=== PATIENT | male | born 1985 | race Caucasian/White ===

== ENCOUNTER 2016-12-12 10:49 | Emergency (ER) | payer OTHER ==
[~2016-12-12] VITALS: Ht 172.7 cm; Wt 65.8 kg
[~2016-12-12 10:49] MED LIST: CEPH500C16 PO; HYDR-4452 PO; SULF1TAB12 PO; [UNRECOGNIZED DRUG - CODE] PO
[2016-12-12 11:01] VITALS: BP 123/89
--- NOTE | 2016-12-12 14:17 | NUR ---
PATIENT CALLED FROM LOBBY AND NO ANSWER DEXTER NAVARRO.
== END 2016-12-12 14:17 | disposition left against medical advice (07) ==
LOC: MED 10:49
DX: L02.414 Cutaneous abscess of left upper limb (principal); Z53.21 Procedure and treatment not carried out due to patient leaving prior to being seen by health care provider

== ENCOUNTER 2017-02-20 14:22 | Emergency (ER) | payer OTHER ==
[~2017-02-20] VITALS: Ht 177.8 cm; Wt 68.0 kg
[2017-02-20 14:22] VITALS: BP 92/74
--- NOTE | 2017-02-20 14:22 | NUR ---
Patient was BIBA and taken to bed 03 via gurney per EMS.
--- NOTE | 2017-02-20 14:30 | NUR ---
PT BIBA BLS FOR DRUG USE, FOUND SHOOTING UP HEROIN 20 MINS AGO IN A PARK. PT STATES "I THINK I GOT A BAD BATCH. I FEEL SICK."; DENIES DIARRHEA; SKIN IS PINK/WARM/DRY; AAOX4 WITH EVEN AND STEADY GAIT; LUNGS CLEAR BL; HR EVEN AND REGULAR; PT DENIES ANY FEVER, CP, SOB, OR COUGH AT THIS TIME; PATIENT STATES PAIN OF 0/10 AT THIS TIME; VSS; PATIENT POSITIONED FOR COMFORT; HOB ELEVATED; BEDRAILS UP X2; BED DOWN. ER MD MADE AWARE OF PT STATUS.
--- NOTE | 2017-02-20 14:53 | NUR ---
Dr. Perla evaluating patient at bedside.
[2017-02-20] MEDS ORDERED: VANCOMYCIN 1,000 MG in DEXTROSE 5% 250 ML IV ONE (14:55)
[2017-02-20] MEDS ORDERED: NACL 0.9% 1,000 ML IV ONE (14:55)
[2017-02-20 15:22] LABS: BASOPHILS # (AUTO) 0.2 K/uL (0.00-0.22); EOSINOPHILS # (AUTO) 0.2 K/uL (0-0.4); EOSINOPHILS % (AUTO) 2.1 % (0.0-4.0); HEMATOCRIT 37.1 % (36-52); HEMOGLOBIN 10.1 g/dL (12.0-18.0); LYMPHOCYTES # (AUTO) 1.8 K/uL (2.0-11.5); LYMPHOCYTES % (AUTO) 21.6 % (20.5-51.1); MEAN CORPUSCULAR HEMOGLOBIN 22 pg (27-31); MEAN CORPUSCULAR HGB CONC 27 g/dL (33-37); MEAN CORPUSCULAR VOLUME 81 fL (80-94); MONOCYTES # (AUTO) 0.5 K/uL (0.8-1.0); MONOCYTES % (AUTO) 6.4 % (1.7-9.3); NEUTROPHILS # (AUTO) 5.8 K/uL (1.8-7.7); PLATELET COUNT (AUTO) 443 K/uL (140-450); RED BLOOD CELL COUNT(AUTO) 4.56 MIL/uL (4.20-6.10); RED CELL DISTRIBUTION WIDTH 14.1 % (11.6-13.7); WHITE BLOOD COUNT (AUTO) 8.5 K/uL (4.8-10.8)
[2017-02-20 15:35] LABS: ANION GAP 13.8 (8-16); CALCIUM 8.2 mg/dL (8.5-10.1); CHLORIDE 101 mmol/L (98-107); CREATININE 0.6 mg/dL (0.6-1.3); GFR ARICAN-AMERICAN 200 mL/min (>90); GFR NON ARICAN-AMERICAN 165 mL/min (>90); GLUCOSE 96 mg/dL (74-106); POTASSIUM 3.8 mmol/L (3.5-5.1); SODIUM SERUM 138 mmol/L (136-145); UREA NITROGEN, BLOOD 5 mg/dL (7-18)
[2017-02-20 15:42] LABS: ACETAMINOPHEN < 0.5 ug/ml (10-30); ALANINE AMINOTRANSFERASE 130 U/L (12-78); ALBUMIN 2.8 g/dL (3.4-5.0); ALCOHOL, BLOOD 80 mg/dL (<3); ALKALINE PHOSPHATASE 139 U/L (46-116); ASPARTATE AMINOTRANSFERASE 87 U/L (15-37); SALICYLATE < 2.8 mg/dL (2.8-20.0); TOTAL BILIRUBIN 0.5 mg/dL (0.0-1.0); TOTAL PROTEIN, SERUM 8.3 g/dL (6.4-8.2)
[2017-02-20] MEDS ORDERED: VANCOMYCIN 1,000 MG VIAL ONE (16:24)
[2017-02-20 18:25] VITALS: BP 101/77
--- NOTE | 2017-02-20 18:25 | NUR ---
Patient discharged with v/s stable. Written and verbal after care instructions given and explained. Patient alert, oriented and verbalized understanding of instructions. Ambulatory with steady gait. All questions addressed prior to discharge. ID band removed. Patient advised to follow up with PMD. Rx of BACTRIM, NORCO given. Patient educated on indication of medication including possible reaction and side effects. Opportunity to ask questions provided and answered.
== END 2017-02-20 18:25 | disposition home or self-care (01) ==
LOC: MED 14:22
DX: F11.10 Opioid abuse, uncomplicated (principal); L03.116 Cellulitis of left lower limb; D64.89 Other specified anemias; Z91.040 Latex allergy status
CPT/HCPCS: 36415; 71010; 80053; 85025; 87040; 93005; 96361; 96365; 99285; G0480; G0482; J3370; J7030; J7060; Q0092

== ENCOUNTER 2017-03-06 08:53 | Emergency (ER) | payer OTHER ==
[~2017-03-06] VITALS: Ht 177.8 cm; Wt 68.9 kg
[2017-03-06 09:19] VITALS: BP 138/78
--- NOTE | 2017-03-06 09:21 | NUR ---
Patient ambulated to bed 07.
--- NOTE | 2017-03-06 09:39 | NUR ---
32/M presents for medication refill. Pt states he lost his prescription for antibiotics and [place]. No complaints at this time. VSS.
--- NOTE | 2017-03-06 09:50 | NUR ---
Dr. Dixon evaluating patient at bedside.
[2017-03-06] MEDS ORDERED: KETOROLAC 60 MG/2 ML VIAL IM ONE (10:00)
[2017-03-06] MEDS ORDERED: oxyCODONE/APAP 5/325 MG 1 TAB TAB PO ONE (10:00)
[2017-03-06] MEDS ORDERED: cefTRIAXone 1,000 MG in LIDOCAINE 1% ED 2.1 ML IM ONE (10:00)
--- NOTE | 2017-03-06 10:02 | NUR ---
Pt refusing to have x-ray performed. Pt states "It's not broken. I don't need it. My mom is waiting in the car and I need to leave as soon as possible." Dr. Dixon made aware.
--- NOTE | 2017-03-06 10:10 | NUR ---
Pt left facility and states "I'm going outside to tell my mom I'm going to be awhile." Pt found wandering outside. Smoking. Dr. Dixon made aware.
--- NOTE | 2017-03-06 10:21 | NUR ---
Pt returned and attempted to provide a UA. Pt states "I can't right now can I have some more water." Pt provided with water.
--- NOTE | 2017-03-06 10:30 | NUR ---
Pt requesting to speak with Dr. Dixon. Pt states "I can't wait for results. I need to leave as soon as possible. I just need a prescription and I can leave." Dr. Dixon made aware.
--- NOTE | 2017-03-06 10:33 | NUR ---
Dr. Dixon at bedside.
[2017-03-06 10:41] VITALS: BP 138/78
--- NOTE | 2017-03-06 10:42 | NUR ---
Patient discharged with v/s stable. Written and verbal after care instructions given and explained. Patient alert, oriented and verbalized understanding of instructions. Ambulatory with steady gait. All questions addressed prior to discharge. ID band removed. Patient advised to follow up with PMD. Rx of KEFLEX, BACTRIM, AND MOTRIN given. Patient educated on indication of medication including possible reaction and side effects. Opportunity to ask questions provided and answered.
== END 2017-03-06 10:42 | disposition home or self-care (01) ==
LOC: MED 08:53
CPT/HCPCS: 96372; 99284; J0696; J1885; J2001

== ENCOUNTER 2017-05-07 17:13 | Inpatient (IN) | payer OTHER ==
[~2017-05-07] VITALS: Ht 177.8 cm; Wt 66.2 kg
--- NOTE | 2017-05-07 17:13 | NUR ---
Patient was BIBA at this time.
[2017-05-07 17:16] VITALS: BP 133/84
[2017-05-07] MEDS ORDERED: NACL 0.9% 1,000 ML IV ONE (17:30)
[2017-05-07] MEDS ORDERED: HYDROmorphone 1 MG/ML AMP IVP ONE (17:30)
--- NOTE | 2017-05-07 18:04 | NUR ---
Patient taken to bed 07 via wheelchair per tech.
--- NOTE | 2017-05-07 18:15 | NUR ---
32 M C/O ABSCESS TO LEFT UPPER ARM X1 WEEK; AAOX4; LUNGS CLEAR BL; RR ARE EVEN AND UNLABORED; PATIENT STATES PAIN OF "PRESSURE" CONSTANT 10/10 TO L UPPER ARM AT THIS TIME; VSS; PATIENT POSITIONED FOR COMFORT; HOB ELEVATED; BED DOWN. ER MD MADE AWARE OF PT STATUS.
[2017-05-07] MEDS ORDERED: HYDROcodone/APAP 10/325 MG 1 TAB TAB PO ONE (18:30)
[2017-05-07] MEDS ORDERED: LORazepam 1 MG TAB PO ONE (18:30)
[2017-05-07] MEDS ORDERED: KETOROLAC 30 MG/ML VIAL IM ONE (18:30)
--- NOTE | 2017-05-07 18:32 | NUR ---
PT UPSET AND REFUSING LAB DRAW OR IV START; PT STATED "I WILL HIT YOU IF YOU TRY TO TOUCH ME WITH A NEEDLE"; SECURITY CALLED; ED MD HOFFMAN AND PARK ATTENDANT NOTIFIED AND AWARE
[2017-05-07] MEDS ORDERED: KETOROLAC 30 MG/ML VIAL ONE (18:36)
--- NOTE | 2017-05-07 19:15 | NUR ---
GOT REPORT FROM CARI JACK. PT. RESTING IN BED, NO S/SX OF DISTRESS AT THIS TIME.
[2017-05-07 19:30] LABS: BASOPHILS # (AUTO) 0.4 K/uL (0.00-0.22); EOSINOPHILS # (AUTO) 0.3 K/uL (0-0.4); HEMATOCRIT 42.9 % (36-52); HEMOGLOBIN 13.4 g/dL (12.0-18.0); LYMPHOCYTES # (AUTO) 0.9 K/uL (2.0-11.5); MEAN CORPUSCULAR HEMOGLOBIN 26 pg (27-31); MEAN CORPUSCULAR HGB CONC 31 g/dL (33-37); MEAN CORPUSCULAR VOLUME 84 fL (80-94); MONOCYTES # (AUTO) 0.2 K/uL (0.8-1.0); NEUTROPHILS # (AUTO) 11.9 K/uL (1.8-7.7); PLATELET COUNT (AUTO) 405 K/uL (140-450); RED CELL DISTRIBUTION WIDTH 13.1 % (11.6-13.7); WHITE BLOOD COUNT (AUTO) 13.7 K/uL (4.8-10.8)
[2017-05-07 19:38] LABS: ANION GAP 14.3 (8-16); CARBON DIOXIDE 27.1 mmol/L (21-32); CREATININE 0.8 mg/dL (0.7-1.3); POTASSIUM 3.4 mmol/L (3.5-5.1)
[2017-05-07 19:45] LABS: PROTHROMBIN TIME 10.4 secs (10.8-13.4)
[2017-05-07 19:52] LABS: ALBUMIN 3.5 g/dL (3.4-5.0); TOTAL BILIRUBIN 0.7 mg/dL (0.0-1.0)
[2017-05-07] MEDS ORDERED: PIPERACILLIN/TAZOBACTAM 3.375 GM in DEXTROSE 5% 50 ML IV ONE (19:55)
[2017-05-07] MEDS: NACL 0.9% 1,000 ML IV SCH ×2 (20:08→22:18)
[2017-05-07] MEDS ORDERED: ONDANSETRON 4 MG/2 ML VIAL IVP PRN (20:10)
[2017-05-07] MEDS ORDERED: MORPHINE SULFATE 4 MG/ML SYR IVP PRN (20:10)
[2017-05-07] MEDS ORDERED: ACETAMINOPHEN 325 MG TAB PO PRN (20:10)
[2017-05-07] MEDS ORDERED: VANCOMYCIN PER PHARMACY MC PRN (20:10)
[2017-05-07] MEDS ORDERED: PIPERACILLIN/TAZOBACTAM 3.375 GM VIAL IV ONE ×2 (20:10→21:45)
--- NOTE | 2017-05-07 20:17 | NUR ---
PT. UNABLE TO PROVIDE URINE, DR. PERAZA MADE AWARE
--- NOTE | 2017-05-07 20:45 | NUR ---
Patient will be admitted to care of DR. WILLAMS. Admited to TELEMETRY. Will go to [id number]. Belongings list completed. Report to CARI AMOS.
[2017-05-07 20:55] VITALS: BP 101/59
--- NOTE | 2017-05-07 20:55 | NUR ---
Admitted from ER TO TELEMETRY UNIT , with chief complaint of ABSCESS, LEFT UPPER ARM,32 y/o ,Male, Passive, VERY DROWSY, STINKS, SEEMS UNABLE TO HAVE BATH. AWAKE, ALERT, ANSWERS QUESTIONS BUT ABRUPTLY BACK TO SLEEP AGAIN. RESPIRATION EVEN AND UNLABORED. IV SALINE LOCK AT THE RIGHT AC G24, PATENT AND INTACT. WITH REDNESS AND SWELLING NOTED ON THE LEFT ARM, TENDER TO TOUCH. HEAD TO TOE ASSESSMENT DONE WITH NURSE LISE, SKIN INTACT. SR/SA ON TELE MONITORING, VS STABLE. oriented to call light, bed, phone,television, bathroom, smoking policy, visiting hours, procedures, ID bracelet on. Belongings list checked.
[2017-05-07] MEDS ORDERED: VANCOMYCIN 1,000 MG VIAL ONE (21:47)
--- NOTE | 2017-05-07 22:00 | NUR ---
SLEEPING COMFORTABLY IN BED.
--- NOTE | 2017-05-07 22:06 | NUR ---
Patient's Plan of Care was discussed and reviewed with SVP MARKETING: ALMITA AMOS
[2017-05-07 22:08] LABS: APPEARANCE,URINE CLEAR (CLEAR); BILIRUBIN,URINE NEGATIVE (NEGATIVE); BLOOD, URINE NEGATIVE (NEGATIVE); COLOR,URINE YELLOW (YELLOW); LEUKOCYTE ESTERASE ,URINE NEGATIVE (NEGATIVE); NITRITE, URINE NEGATIVE (NEGATIVE); UGLUCOSE NEGATIVE (NEGATIVE)
[2017-05-07] MEDS: VANCOMYCIN 1GM/DEXT 5% PREMIX 200 ML IV SCH (22:10)
--- NOTE | 2017-05-07 22:10 | NUR ---
VANCOMYCIN 1 GM IVPB GIVEN BY CHARGE NURSE KOJO.
[2017-05-07 22:18] LABS: BARBITURATE, URINE NEG. ng/ml (NEG <=200); BENZODIAZEPINE, URINE NEG. ng/mL (NEG <=200); CANNABINOID, URINE NEG. ng/mL (NEG <=50); COCAINE, URINE NEG. ng/mL (NEG <=300); OPIATE, URINE POS. ng/mL (NEG <=2000); PHENCYCLIDINE SCREEN,URINE NEG. ng/mL (NEG <=25)
--- NOTE | 2017-05-08 | NUR ---
REFUSED VITAL SIGN TO BE TAKEN. STILL VERY SLEEPY.
[2017-05-08 03:18] VITALS: BP 120/63
--- NOTE | 2017-05-08 04:58 | NUR ---
ZOSYN 3.375 MG. IVPB GIVEN BY CARI CHANG.
[2017-05-08] MEDS: VANCOMYCIN 1GM/DEXT 5% PREMIX 200 ML IV SCH ×3 (05:00→21:00)
[2017-05-08] MEDS ORDERED: PIPERACILLIN/TAZOBACTAM 3.375 GM in DEXTROSE 5% 50 ML IV SCH (05:00)
--- NOTE | 2017-05-08 05:00 | NUR ---
INFORMED DR. DUMAS, PATIENT COMPLAINING THAT MORPHINE 4 MG. DOES NOT WORK ON HIM, ALSO ASKING FOR METHADONE. INCREASED MORPHINE TO 6 MG, ORDERED METHADONE, SAME DOSAGE IN THE MED RECONCILIATION.
[2017-05-08] MEDS ORDERED: VANCOMYCIN 1,000 MG VIAL ONE (05:24)
--- NOTE | 2017-05-08 05:30 | NUR ---
ENTERPRISE ARCHITECT MANAGER JOHN INFORMED PATIENT HAD EPISODES OF BRADYCARDIA, HR - 41 AND CHANGED IN RHYTHM. CHECKED PATIENT, BP - 132/78, HR - 63, ASYMPTOMATIC. WILL ENDORSE TO AM NURSE FOR MD TO BE INFORMED.
--- NOTE | 2017-05-08 05:32 | NUR ---
VANCOMYCIN 1000MG STARTED, PATIENT TOLERATED WELL.
[2017-05-08] MEDS: NACL 0.9% 1,000 ML IV SCH ×2 (06:08→16:20)
[2017-05-08] MEDS ORDERED: MORPHINE SULFATE 5 MG/ML VIAL IVP PRN ×2 (06:15→06:35)
--- NOTE | 2017-05-08 06:55 | NUR ---
RESTING IN BED, RESPIRATION EVEN AND UNLABORED. CONDITION REMAIN STABLE. WILL ENDORSE TO AM NURSE FOR CONTINUITY OF CARE.
[2017-05-08] MEDS ORDERED: MORPHINE SULFATE 10 MG/ML SYR IVP PRN (07:20)
--- NOTE | 2017-05-08 07:30 | NUR ---
RECEIVED BEDSIDE REPORT FROM DETECTIVE CAPTAIN NURSE. PT AWAKE AND ALERT, NO SIGNS OF ACUTE DISTRESS. BOWEL SOUNDS ACTIVE IN ALL 4 QUADRANTS, BOWEL AND BLADDER CONTINENCE. AMBULATORY WITH ASSIST. REDNESS AND SWELLING ON LEFT UPPER EXTREMITY AND SCAR ON LEFT BUTTOCKS. IV PATENT AND ASYMPTOMATIC. BED IN LOW POSITION WITH BILATERAL HALF SIDE RAILS UP, CALL LIGHT WITHIN REACH. WILL CONTINUE TO MONITOR.
[2017-05-08 08:00] VITALS: BP 128/75
[2017-05-08] MEDS: MORPHINE SULFATE 10 MG/ML SYR IVP PRN ×4 (08:07→22:06)
[2017-05-08] MEDS ORDERED: METHADONE HCL PO SCH (09:00)
--- NOTE | 2017-05-08 09:20 | NUR ---
SPOKE WITH DR SKINNER REGARDING PATIENT HEART RATE FLUCTUATIONS FROM 41 TO 108, SINUS GEORGE, SINUS ARRHYTHMIA, TO SINUS TACH. PER DR SKINNER, ORDER AN EKG AND HE WILL BE IN TO SEE PATIENT TODAY. NOTED, WILL CARRY OUT.
--- NOTE | 2017-05-08 09:30 | NUR ---
PER PATIENT HE IS NOT CURRENTLY GOING TO A METHADONE CLINIC AT THIS TIME, HE IS USING HEROIN.
--- NOTE | 2017-05-08 10:20 | NUR ---
CM NOTE INITIAL REVIEW FAXED TO [facility] [phone] PH# ANALY [phone] FEBRUARY [phone]
--- NOTE | 2017-05-08 11:23 | NUR ---
PATIENT HAS BEEN SCREENED AND CATEGORIZED MODERATE NUTRITION RISK. PATIENT WILL BE SEEN WITHIN 3-5 DAYS OF ADMISSION. 05/10/17-05/12/[address]
--- NOTE | 2017-05-08 11:30 | NUR ---
PT SLEEPING, NO SIGNS OF ACUTE DISTRESS. BED IN LOW POSITION, BED ALARM ON, BILATERAL HALF SIDE RAILS UP, CALL LIGHT WITHIN REACH. WILL CONTINUE TO MONITOR.
[2017-05-08 12:00] VITALS: BP 126/75
[2017-05-08] MEDS: PIPER/TAZO 3.375GM/D5W PREMIX 50 ML IV SCH ×2 (12:21→21:15)
--- NOTE | 2017-05-08 13:00 | NUR ---
DR SKINNER AT PATIENT BEDSIDE.
--- NOTE | 2017-05-08 14:30 | NUR ---
PT SLEEPING, NO SIGNS OF ACUTE DISTRESS. BED IN LOW POSITION WITH BILATERAL HALF SIDE RAILS UP, BED ALARM ON, CALL LIGHT WITHIN REACH. WILL CONTINUE TO MONITOR.
[2017-05-08] MEDS ORDERED: METHADONE 10 MG TAB PO SCH (15:31)
[2017-05-08 16:00] VITALS: BP 122/78
[2017-05-08] MEDS ORDERED: PROPOFOL 200 MG/20 ML VIAL IV ONE (17:30)
[2017-05-08] MEDS ORDERED: MIDAZOLAM 2 MG/2 ML VIAL ONE (17:39)
[2017-05-08] MEDS ORDERED: fentaNYL 0.05 MG/ML VIAL ONE (17:39)
[2017-05-08] MEDS ORDERED: MORPHINE SULFATE 4 MG/ML SYR ONE (17:39)
[2017-05-08] MEDS: BUPIVACAINE-MPF 0.25% 30 ML VIAL INJ ONE ×2 (17:52→18:35)
--- NOTE | 2017-05-08 18:00 | NUR ---
PT TAKEN OFF UNIT FOR INCISION AND DRAINAGE WITH DR PEPE.
[2017-05-08] MEDS ORDERED: PIPERACILLIN/TAZOBACTAM 3.375 GM VIAL IV ONE (18:08)
[2017-05-08] MEDS ORDERED: MIDAZOLAM 2 MG/2 ML VIAL IV ONE (18:35)
[2017-05-08] MEDS ORDERED: METOCLOPRAMIDE 10 MG/2 ML INJ VIAL IVP PRN (18:35)
[2017-05-08] MEDS ORDERED: MORPHINE SULFATE 4 MG/ML SYR IVP PRN ×2 (18:35)
[2017-05-08] MEDS ORDERED: MORPHINE SULFATE 2 MG/ML SYR IVP PRN (18:35)
--- NOTE | 2017-05-08 19:20 | NUR ---
PATIENT OFF UNIT IN OR. ENDORSED TO SPEECH LANGUAGE SPECIALIST NURSE FOR CONTINUITY OF CARE.
--- NOTE | 2017-05-08 19:45 | NUR ---
RECEIVED HANDOFF REPORT FROM AM RN. PATIENT BROUGHT BACK TO UNIT FROM OR. IV ON RIGHT FOREARM NO LONGER PATENT. OR NURSE STARTED 20G IV TO LEFT FOOT. PATIENT A&OX4. NO SIGNS AND SYMPTOMS OF DISTRESS. CALL LIGHT WITHIN REACH. WILL CONTINUE TO MONITOR.
[2017-05-08 20:00] VITALS: BP 123/75
--- NOTE | 2017-05-08 21:28 | NUR ---
PATIENT SLEEPING IN BED. PM MEDS GIVEN. CALL LIGHT WITHIN REACH. WILL CONTINUE TO MONITOR.
[2017-05-09] VITALS: BP 104/58
--- NOTE | 2017-05-09 00:41 | NUR ---
PATIENT SLEEPING. NO SIGNS OR SYMPTOMS OF ACUTE DISTRESS. WILL CONTINUE TO MONITOR.
[2017-05-09] MEDS: NACL 0.9% 1,000 ML IV SCH ×3 (01:43→22:08)
--- NOTE | 2017-05-09 03:00 | NUR ---
PATIENT SLEEPING. NO SIGNS AND SYMPTOMS OF ACUTE DISTRESS NOTED. CALL LIGHT WITHIN REACH. WILL CONTINUE TO MONITOR.
[2017-05-09 04:00] VITALS: BP 103/62
[2017-05-09 04:13] LABS: BASOPHILS # (AUTO) 0.2 K/uL (0.00-0.22); BASOPHILS % (AUTO) 1.9 % (0.0-2.0); EOSINOPHILS # (AUTO) 0.2 K/uL (0-0.4); EOSINOPHILS % (AUTO) 2.2 % (0.0-4.0); HEMATOCRIT 38.8 % (36-52); HEMOGLOBIN 12.6 g/dL (12.0-18.0); LYMPHOCYTES # (AUTO) 1.7 K/uL (2.0-11.5); LYMPHOCYTES % (AUTO) 18.7 % (20.5-51.1); MEAN CORPUSCULAR HEMOGLOBIN 27 pg (27-31); MEAN CORPUSCULAR HGB CONC 32 g/dL (33-37); MEAN CORPUSCULAR VOLUME 84 fL (80-94); MONOCYTES # (AUTO) 1.1 K/uL (0.8-1.0); MONOCYTES % (AUTO) 12.2 % (1.7-9.3); NEUTROPHILS # (AUTO) 5.8 K/uL (1.8-7.7); PLATELET COUNT (AUTO) 373 K/uL (140-450); RED CELL DISTRIBUTION WIDTH 12.8 % (11.6-13.7)
[2017-05-09] MEDS: MORPHINE SULFATE 10 MG/ML SYR IVP PRN ×4 (04:24→21:52)
--- NOTE | 2017-05-09 04:24 | NUR ---
PATIENT REPORTS 10/10 PAIN. MEDICATED ORDERED. NO SIGNS AND SYMPTOMS OF ACUTE DISTRESS. CALL LIGHT WITHIN REACH. WILL CONTINUE TO MONITOR.
[2017-05-09] MEDS: PIPER/TAZO 3.375GM/D5W PREMIX 50 ML IV SCH ×3 (04:25→20:51)
[2017-05-09 04:42] LABS: ALBUMIN 2.4 g/dL (3.4-5.0); ANION GAP 8.6 (8-16); CARBON DIOXIDE 30.3 mmol/L (21-32); CREATININE 0.6 mg/dL (0.7-1.3); POTASSIUM 3.9 mmol/L (3.5-5.1); TOTAL BILIRUBIN 0.3 mg/dL (0.0-1.0)
--- NOTE | 2017-05-09 05:10 | NUR ---
CALLED PHARMACY REGARDING VANCO TROUGH. WAITING FOR CALL BACK.
--- NOTE | 2017-05-09 05:13 | NUR ---
TRACY RIVAS FROM OFF SITE PHARMACY, JOHANN BUCIO TO GIVE.
[2017-05-09] MEDS: VANCOMYCIN 1GM/DEXT 5% PREMIX 200 ML IV SCH ×3 (05:19→21:58)
--- NOTE | 2017-05-09 07:15 | NUR ---
ENDORSED PLAN OF CARE TO AM NURSE. PATIENT REMAINS STABLE.
--- NOTE | 2017-05-09 07:25 | NUR ---
RECEIVED REPORT FROM SOLAR ELECTRIC INSTALLER NURSE, PT IS SLEEPING IN BED BUT EASILY AWAKEN, PT IS A/OX4, AMBULATORY, IV IS ON THE LT. FOOT, PATENT, INTACT, PT IS S/P I & D OF LEFT UPPER ARM 05/08/17, NO S/S OF RESPIRATORY DISTRESS OR DISCOMFORT NOTED, SAFETY/FALL PRECAUTIONS ARE IN PLACE, DISCUSSED PLAN OF CARE WITH PT, PT VERBALIZED UNDERSTANDING, CALL LIGHT IS WITHIN REACH, WILL CONTINUE TO MONITOR.
[2017-05-09 08:00] VITALS: BP 114/70
[2017-05-09] MEDS: METHADONE 10 MG TAB PO SCH (08:12)
--- NOTE | 2017-05-09 09:00 | NUR ---
PT REFUSED TO HAVE GOWN CHANGED AND BED BATH DONE.
--- NOTE | 2017-05-09 10:10 | NUR ---
CM NOTE CONCURRENT REVIEW FAXED TO [facility] [phone] PH# ANALY [phone] FEBRUARY [phone]
--- NOTE | 2017-05-09 11:00 | NUR ---
PT IS SLEEPING IN BED AT THIS TIME, CALL LIGHT WITHIN REACH.
--- NOTE | 2017-05-09 13:00 | NUR ---
PATIENT IS RESTING IN BED AT THIS TIME, PT REQUESTED SNACKS, ALL NEEDS MET AT THIS TIME, CALL LIGHT WITHIN REACH.
--- NOTE | 2017-05-09 13:25 | NUR ---
PATIENT COMPLAINING OF SEVERE ARM PAIN, WILL MEDICATE WITH PRN PAIN MEDICATIONS AT THIS TIME.
--- NOTE | 2017-05-09 14:12 | NUR ---
PER PHARMACIST, JODIE BUCIO TO GIVE THE VANCOMYCIN, VANCOMYCIN TROUGH IS 15.7.
--- NOTE | 2017-05-09 15:10 | NUR ---
PT IS SLEEPING IN BED AT THIS TIME, CALL LIGHT IS WITHIN REACH.
--- NOTE | 2017-05-09 15:56 | NUR ---
SS NOTE: PER [facility] MISAEL BECKFORD ([phone]), IF [facility] IS ABLE TO ACCEPT PT, THE AUTH IS [id number]. SHE ALSO STATED THAT TRANSPORT AUTH IS [id number].
[2017-05-09 16:00] VITALS: BP 120/61
--- NOTE | 2017-05-09 17:40 | NUR ---
PT IS SITTING IN BED EATING DINNER, PT STATED HIS PAIN WAS RETURNING 10/10, SHARP PAIN, WILL MEDICATE WITH PRN PAIN MEDICATION.
--- NOTE | 2017-05-09 19:05 | NUR ---
ENDORSED PT TO SHAPER AND PRESSER NURSE FOR CONTINUITY OF CARE, PT STABLE AT THIS TIME.
--- NOTE | 2017-05-09 19:40 | NUR ---
RECEIVED HANDOFF REPORT FROM AM RN. PATIENT A&OX4. SAFETY MEASURES ENSURED. CALL LIGHT WITHIN REACH. IV SITE PATENT AND INTACT. NO SIGNS OR SYMPTOMS OF ACUTE DISTRESS. PATIENT DENIES PAIN. WILL CONTINUE TO MONITOR.
--- NOTE | 2017-05-09 21:52 | NUR ---
PATIENT REPORTS 10/10 PAIN. MEDICATED ORDERED. NO SIGNS OR SYMPTOMS OF ACUTE DISTRESS. CALL LIGHT WITHIN REACH. WILL CONTINUE TO MONITOR.
[2017-05-10] VITALS: BP 113/65
--- NOTE | 2017-05-10 00:52 | NUR ---
PATIENT SLEEPING IN BED. NO SIGNS OR SYMPTOMS OF ACUTE DISTRESS. CALL LIGHT WITHIN REACH. WILL CONTINUE TO MONITOR.
--- NOTE | 2017-05-10 03:00 | NUR ---
PATIENT SLEEPING. NO SIGNS OR SYMPTOMS OF ACUTE DISTRESS. CALL LIGHT WITHIN REACH. WILL CONTINUE TO MONITOR.
[2017-05-10] MEDS: MORPHINE SULFATE 10 MG/ML SYR IVP PRN ×2 (03:06→08:03)
[2017-05-10] MEDS: NACL 0.9% 1,000 ML IV SCH (03:13)
[2017-05-10] MEDS: PIPER/TAZO 3.375GM/D5W PREMIX 50 ML IV SCH ×2 (05:04→12:35)
--- NOTE | 2017-05-10 05:40 | NUR ---
PATIENT SLEEPING. NO SIGNS OR SYMPTOMS OF ACUTE DISTRESS. CALL LIGHT WITHIN REACH. WILL CONTINUE TO MONITOR.
[2017-05-10] MEDS: VANCOMYCIN 1GM/DEXT 5% PREMIX 200 ML IV SCH (05:52)
--- NOTE | 2017-05-10 07:17 | NUR ---
GAVE HANDOFF REPORT TO AM RN. PATIENT REMAINS STABLE
--- NOTE | 2017-05-10 07:23 | NUR ---
RECEIVED REPORT FROM MANAGER LEADERSHIP DEVELOPMENT NURSE, PT IS SLEEPING IN BED BUT EASILY AWAKEN, PT IS A/OX4, AMBULATORY, IV IS ON THE LT. FOOT, PATENT, INTACT, PT IS S/P I & D OF LEFT UPPER ARM 05/08/17, PT HAS DRESSING WITH MINIMAL DRAINAGE NOTED ON THE LEFT UPPER ARM, NO S/S OF RESPIRATORY DISTRESS OR DISCOMFORT NOTED, SAFETY/FALL PRECAUTIONS ARE IN PLACE, DISCUSSED PLAN OF CARE WITH PT, PT VERBALIZED UNDERSTANDING, CALL LIGHT IS WITHIN REACH, WILL CONTINUE TO MONITOR.
[2017-05-10 08:00] VITALS: BP 133/66
[2017-05-10] MEDS: METHADONE 10 MG TAB PO SCH (08:03)
--- NOTE | 2017-05-10 08:25 | NUR ---
PAGED DR. PEPE TO LET HIM KNOW THE PATIENT WAS REFUSING TO HAVE THE PACKING CHANGED DURING WOUND CARE.
--- NOTE | 2017-05-10 08:37 | NUR ---
CM NOTE CONCURRENT REVIEW FAXED TO [facility] [phone] PH# ANALY [phone] FEBRUARY [phone]
--- NOTE | 2017-05-10 08:55 | NUR ---
SPOKE TO DR. PEPE OVER THE PHONE, I LET HIM KNOW THE PATIENT WAS REFUSING TO HAVE THE PACKING REMOVED DURING WOUND CARE. DR. PEPE DID NOT GIVE ANY ORDERS, DR. PEPE SAID "OK."
--- NOTE | 2017-05-10 09:10 | NUR ---
CM NOTE SENT THE FOLLOWING SNF INQUIRIES FOR POSSIBLE SNF PLACEMENT: [facility] - [facility], NOT ABLE TO TAKE PATIENT BECAUSE OF HIS ACTIVE DRUG USE [facility] - [facility], NO MALE BEDS AVAILABLE [facility], NO BED AVAILABLE [facility] - [facility] [place], NOT ABLE TO TAKE PATIENT BECAUSE OF ACTIVE DRUG USE AND HOMELESS [facility] - [facility] [place], NO BED AVAILABLE [facility] - [facility], THEY CAN TAKE PATIENT IF NO ISOLATION Addendum: 05/10/17 at 1012 by Meg Feng BRIANNA PH# [phone], (C) [phone] [facility] CASE MANAGEMENT COVERAGE ON 05/10/17 DIP PAINTER JEFF PH# [phone]; FOR DATES 05/11/17-05/13/17: DIP PAINTER СВЕТЛАНА PH# [phone]
--- NOTE | 2017-05-10 10:50 | NUR ---
PATIENT AGREED TO HAVE PACKING REMOVED FROM WOUND, WOUND CARE DONE BY (PINEDA) WOUND CARE NURSE, PHOTOS OF THE WOUND WERE TAKEN, PT TOLERATED WELL, WILL CONTINUE TO MONITOR.
[2017-05-10] MEDS ORDERED: GAUZE TP PRN (11:35)
--- NOTE | 2017-05-10 11:41 | NUR ---
WOUND CARE EVALUATION NOTE REASON FOR EVALUATION: S/P I&D ABSCESS LEFT UPPER ARM COMPLETE SKIN ASSESSMENT DONE ON THIS 32 Y/O MALE ADMITTED TO [facility], WITH INITIAL DIAGNOSIS OF GROWING ABSCESS LEFT UPPER ARM. NO SIGNIFICANT PAST MEDICAL . ALL ABOVE INFORMATION WAS OBTAINED FROM THE PT. AND ADMISSION H&P. LABS 05/09/17 ARE WBC 4.6, H/H 12.6/38.8, GLUCOSE 76, ALBUMIN 2.4, PT/INR 05/07/17 WERE 10.4/1.0 AND PTT 29.8. BLOOD CULTURE NO GROWTH AFTER 48H. MEDICATIONS INCLUDE METHODONE, PIPERACILLIN, VANCOMYCIN AND MORPHINE SULFATE. PATIENT IS AAOX4, SKIN WARN AND DRY, WNL. SKIN TURGOR TIGHT. BLE HAIR GROWTH, BILATERAL PEDAL PULSES PRESENT AND STRONG. CAPILLARY REFILLED <3 SEC. PLAN OF CARE AND WOUND CARE EDUCATION PROVIDE TO PT. AND PT VERBALIZES UNDERSTANDING. POC DISCUSSED WITH PRIMARY RN. INTEGUMENTARY: LEFT UPPER ARM - S/P I&D SITE CLEAN, MODERATE AMOUNT OF SANGUINEOUS DRAINAGE, NO ODOR. [id number] WITH DEEPEST UNDERMINING AT 3 O'CLOCK 3.5CCM RECOMMENDATIONS: -CLEANSE WOUND WITH NS. PAT DRY, PACK WITH IODOFORM COVER WITH DRY DRESSING AND SECURE WITH TAPE BID AND PRN IF SOILING -KEEP AREA DRY AND CLEAN AT ALL CANDE -ASSESS AND MONITOR WOUND SITE DURING WOUND CARE AND NOTIFY PHYSICIAN FOR ANY S/S INFECTION OR CHANGE OF CONDITION RECOMMENDATIONS DISCUSSED WITH PRIMARY RN. WILL FOLLOW UP PATIENT Q 7-10 DAYS AND PRN. PLEASE CONTACT WOUND CARE NURSE FOR ANY CONCERNS, QUESTIONS AND CHANGES IN SKIN CONDITION. Addendum: 05/10/17 at 1318 by Jason Slater RN (Grace) 05/10/[address] CONSULT.
--- NOTE | 2017-05-10 12:06 | NUR ---
PAGED DR. SKINNER TO LET HIM KNOW THE PATIENT HAS BEEN ASKING FOR CHOCOLATE BROWNIES EVERY HOUR TODAY AND WAS BEGINNING TO SCREAM AND GET AGGRESSIVE.
--- NOTE | 2017-05-10 12:13 | NUR ---
SECURITY IN PATIENT'S ROOM SPEAKING WITH PT.
[2017-05-10] MEDS: MORPHINE SULFATE 2 MG/ML SYR IVP PRN ×3 (12:36→21:10)
--- NOTE | 2017-05-10 14:00 | NUR ---
DR. SKINNER IN PATIENT'S ROOM SPEAKING WITH PT.
--- NOTE | 2017-05-10 15:10 | NUR ---
PATIENT IS SLEEPING IN BED AT THIS TIME, NO S/S OF RESPIRATORY DISTRESS OR DISCOMFORT NOTED, CALL LIGHT WITHIN REACH.
[2017-05-10 16:00] VITALS: BP 106/57
--- NOTE | 2017-05-10 17:04 | NUR ---
PT IS SLEEPING IN BED AT THIS TIME, CALL LIGHT IS WITHIN REACH.
--- NOTE | 2017-05-10 19:15 | NUR ---
ENDORSED PT TO RUBBER MOLD MAKER NURSE FOR CONTINUITY OF CARE, PT STABLE AT THIS TIME.
--- NOTE | 2017-05-10 19:45 | NUR ---
RECEIVED HANDOFF REPORT FROM AM RN. PATIENT SLEEPING UPON ENTRY. A&OX4. IV SITE PATENT AND INTACT. DRESSING DRY AND INTACT. SAFETY MEASURES ENSURED. CALL LIGHT WITHIN REACH. WILL CONTINUE TO MONITOR.
[2017-05-10] MEDS: GAUZE TP SCH (21:00)
[2017-05-10] MEDS: CLINDAMYCIN 600 MG in DEXTROSE 5% 50 ML IV SCH (21:15)
--- NOTE | 2017-05-10 23:00 | NUR ---
PATIENT SLEEPING. NO SIGNS AND SYMPTOMS OF ACUTE DISTRESS. CALL LIGHT WITHIN REACH. WILL CONTINUE TO MONITOR.
[2017-05-11] VITALS: BP 112/53
--- NOTE | 2017-05-11 01:15 | NUR ---
PATIENT SLEEPING. NO SIGNS AND SYMPTOMS OF ACUTE DISTRESS. CALL LIGHT WITHIN REACH. WILL CONTINUE TO MONITOR.
--- NOTE | 2017-05-11 04:34 | NUR ---
PATIENT SLEEPING. NO SIGNS AND SYMPTOMS OF ACUTE DISTRESS NOTED. CALL LIGHT WITHIN REACH. WILL CONTINUE TO MONITOR.
[2017-05-11] MEDS: CLINDAMYCIN 600 MG in DEXTROSE 5% 50 ML IV SCH ×2 (04:57→14:10)
[2017-05-11] MEDS: MORPHINE SULFATE 2 MG/ML SYR IVP PRN ×3 (06:04→14:11)
[2017-05-11 06:48] LABS: BASOPHILS # (AUTO) 0.3 K/uL (0.00-0.22); BASOPHILS % (AUTO) 3.4 % (0.0-2.0); EOSINOPHILS # (AUTO) 0.3 K/uL (0-0.4); EOSINOPHILS % (AUTO) 3.8 % (0.0-4.0); HEMATOCRIT 38.5 % (36-52); HEMOGLOBIN 12.6 g/dL (12.0-18.0); LYMPHOCYTES # (AUTO) 2.1 K/uL (2.0-11.5); LYMPHOCYTES % (AUTO) 27.6 % (20.5-51.1); MEAN CORPUSCULAR HEMOGLOBIN 28 pg (27-31); MEAN CORPUSCULAR HGB CONC 33 g/dL (33-37); MEAN CORPUSCULAR VOLUME 84 fL (80-94); MONOCYTES # (AUTO) 0.8 K/uL (0.8-1.0); MONOCYTES % (AUTO) 10.5 % (1.7-9.3); NEUTROPHILS # (AUTO) 4.3 K/uL (1.8-7.7); NEUTROPHILS % (AUTO) 54.7 % (42.2-75.2); PLATELET COUNT (AUTO) 352 K/uL (140-450); RED BLOOD CELL COUNT(AUTO) 4.58 MIL/uL (4.20-6.10); RED CELL DISTRIBUTION WIDTH 12.5 % (11.6-13.7); WHITE BLOOD COUNT (AUTO) 7.8 K/uL (4.8-10.8)
[2017-05-11 07:10] LABS: ALBUMIN 2.5 g/dL (3.4-5.0); ANION GAP 8.5 (8-16); CARBON DIOXIDE 32.4 mmol/L (21-32); CREATININE 0.7 mg/dL (0.7-1.3); POTASSIUM 3.9 mmol/L (3.5-5.1); TOTAL BILIRUBIN 0.1 mg/dL (0.0-1.0)
--- NOTE | 2017-05-11 07:23 | NUR ---
ENDORSED HANDOFF REPORT TO AM RN. PATIENT STABLE. CALL LIGHT WITHIN REACH
--- NOTE | 2017-05-11 07:30 | NUR ---
RECEIVED PATIENT REPORT AT BEDSIDE FROM NIGHT NURSE. PATIENT IS AAOX4 AND SHOWS NO S/S OF ACUTE DISTRESS ON ROOM AIR. PATIENT HAS NOTED DRESSING ON THE L UPPER ARM CLEAN DRY AND INTACT. PATIENT STATES PAIN 6/10 ON THE LAY HOWEVER IS AWARE PAIN MEDICATION IS NOT DUE. PATIENT AGREED TO WAIT UNTIL MEDICATIONS WAS AVAILABLE. IV NOTED ON THE L FOOT WITH IVF'S INFUSING WELL. PATIENT WAS EXPLAINED POC FOR TODAY AND VERBALIZED UNDERSTANDING. PATIENT IS AWARE OF HOW TO USE THE CALL LIGHT FOR ASSISTANCE. THE BED IS LOWERED WITH CALL LIGHT WITHIN REACH.
[2017-05-11 08:00] VITALS: BP 98/69
[2017-05-11] MEDS: GAUZE TP SCH (09:48)
[2017-05-11] MEDS: METHADONE 10 MG TAB PO SCH (09:48)
--- NOTE | 2017-05-11 09:49 | NUR ---
ADMINISTERED SCHEDULED MEDICATIONS AND MORPHINE 2 MG IVP FOR 6/10 PAIN ON THE LAY. WILL REASSESS IN 30 MIN.
--- NOTE | 2017-05-11 10:19 | NUR ---
PATIENT IS SLEEPING COMFORTABLY IN BED AND SHOWS NO S/S OF ACUTE DISTRESS.
--- NOTE | 2017-05-11 10:50 | NUR ---
PATIENT ASKED FOR KARISHMA. WILL GIVE TO HIM. PATIENT IS AAOX4 AND SHOWS NO S/S OF ACUTE DISTRESS.
--- NOTE | 2017-05-11 11:20 | NUR ---
SEND [facility] FAX OF WOUND CX AND C&S TEST RESULTS. WILL AWAIT FOR CALL BACK FOR ROOM IN [place].
--- NOTE | 2017-05-11 12:21 | NUR ---
CALLED [facility] FOR TRANSFER TO [facility] AND SHE GAVE ROOM #211A. CALLED CLAUDIA FROM [facility] AND SHE GAVE AUTH # [id number] FOR [facility], SHE SAID SHE WILL CALL [facility] TO GIVE AUTH NUMBER. NOTIFIED CARI MEADOWS ON THE FLOOR FOR [employer].
--- NOTE | 2017-05-11 13:21 | NUR ---
PATIENT IS SLEEPING AND SHOWS NO S/S OF ACUTE DISTRESS ON ROOM AIR. WILL CONTINUE TO MONITOR.
[2017-05-11] MEDS ORDERED: CLIN300C2 IV ×3 (13:32→16:03)
--- NOTE | 2017-05-11 14:05 | NUR ---
ADMINISTERED SCHEDULED MEDICATION. PATIENT C/O PAIN 6/10 AT INCISION SITE. ADMINISTERED MORPHINE 2 MG IVP. WILL WAIT UNTIL PATIENT IS READY FOR DRESSING CHANGE.
--- NOTE | 2017-05-11 14:30 | NUR ---
PATIENT DRESSING WAS CHANGED. WOUND WAS CLEANSED WITH NORMAL SALINE AND PACKED WITH IODOFORM. COVERED WITH GAUZE AND ISLAND DRESSING APPLIED. PATIENT TOLERATED ACTIVITY WELL. WILL CONTINUE TO MONITOR.
--- NOTE | 2017-05-11 14:50 | NUR ---
WHEN PROVIDING PATIENT WOUND CARE. PATIENT PICTURE WAS NOT ON CAMERA MEMORY STICK. WOUND IS 5 CM X 1 CM X 0.9 CM. WOUND BED IS RED AND PINK AND SHOWS SIGNS OF HEALING. NO PUS, NO SLOUGH, NO NECROSIS NOTED. SURROUNDING TISSUE IS PINK. WILL CONTINUE TO MONITOR.
--- NOTE | 2017-05-11 15:40 | NUR ---
SPOKE WITH CINDY FROM [facility] [phone] AND GAVE PATIENT REPORT. SHE VERBALIZED UNDERSTANDING ON CONTINUITY OF CARE FOR IV ABX CLINDAMYCIN 600 MG IV Q8H FOR SEVEN DAYS. DR SKINNER STATED END DATE FOR IV ABX ON 05/17/17 FOR A TOTAL OF SEVEN DAYS.
[2017-05-11 16:00] VITALS: BP 113/58
[2017-05-11] MEDS ORDERED: ACET-2858 PO (16:04)
[2017-05-11] MEDS ORDERED: DOL10 PO (16:07)
--- NOTE | 2017-05-11 16:25 | NUR ---
PATIENT IS IN BED AND SHOWS NO S/S OF ACUTE DISTRESS ON ROOM AIR. PATIENT IS DRESS AND READY TO BE TRANSFERRED TO [facility] FOR WOUND CARE OF THE LEFT UPPER ARM. PATIENT IS AWARE AND VERBALIZED UNDERSTANDING OF CONTINUITY OF CARE.
--- NOTE | 2017-05-11 16:29 | NUR ---
SPOKE WITH LYNN FROM [facility] AND WAS NOTIFIED DR SIMPSON WILL BE THE ATTENDING DR. PATIENT IS AWARE. ALSO PATIENT IS TO FOLLOW UP WITH DR PEPE PHONE NUMBER [phone]. PATIENT VERBALIZED UNDERSTANDING.
--- NOTE | 2017-05-11 17:10 | NUR ---
TRANSPORT ARRIVED ONTO UNIT. PATIENT HAS BEEN DISCHARGED. DISCHARGE INSTRUCTIONS WERE GIVEN TO PATIENT. PATIENT'S QUESTIONS WERE ANSWERED. PATIENT VERBALIZED UNDERSTANDING. ALL BELONGINGS IN PATIENTS POSSESSION. PATIENT HAS IV ON THE L FOOT FOR CONTINUATION OF CARE AT [facility] FOR IV ABX. PATIENT LEFT UNIT IN WHEELCHAIR IN STABLE CONDITION WITH TRANSPORT. PATIENT IS AAOX4 AND SHOWS NO S/S OF ACUTE DISTRESS ON ROOM AIR.
== END 2017-05-11 17:10 | DRG 364 ==
LOC: MED 17:13 → MTU 20:12
PROVIDERS: ADMIT Internal Medicine Pulmonary Disease; ATTEND Internal Medicine Pulmonary Disease
PROC: 0J9F0ZZ Drainage of Left Upper Arm Subcutaneous Tissue and Fascia, Open Approach (ICD-10-PCS; principal; 2017-05-08 17:45)
DX: L02.414 Cutaneous abscess of left upper limb (principal); F11.20 Opioid dependence, uncomplicated; D72.829 Elevated white blood cell count, unspecified; F15.20 Other stimulant dependence, uncomplicated; F17.210 Nicotine dependence, cigarettes, uncomplicated; F20.9 Schizophrenia, unspecified; F19.10 Other psychoactive substance abuse, uncomplicated; Z59.0 Homelessness; Z79.899 Other long term (current) drug therapy; Z91.040 Latex allergy status; B95.61 Methicillin susceptible Staphylococcus aureus infection as the cause of diseases classified elsewhere
CPT/HCPCS: 36415; 71010; 73060; 76881; 80053; 80202; 80305; 81003; 83605; 85025; 85610; 85730; 87040; 87070; 87075; 87081; 87186; 87205; 93005; 96365; 96372; 96375; 99285; J1170; J1885; J2250; J2270; J2543; J2704; J3010; J3370; J3490; J7030; J7060; Q0092

== ENCOUNTER 2017-07-22 06:10 | Emergency (ER) | payer OTHER ==
[~2017-07-22] VITALS: Ht 167.6 cm; Wt 73.2 kg
[~2017-07-22 06:10] MED LIST changes: +ACET-2858 PO; -CEPH500C16 PO; +CLIN300C2 IV; +DOL10 PO; -HYDR-4452 PO; -SULF1TAB12 PO; -[UNRECOGNIZED DRUG - CODE] PO
[2017-07-22 06:21] VITALS: BP 140/73
--- NOTE | 2017-07-22 06:25 | NUR ---
PT TAKEN TO BED 4
--- NOTE | 2017-07-22 06:31 | NUR ---
32Y/M PT. PRESENTS TO ED WITH C/O BOTH ARM CELLULITIS. PT. STATES BOTH ARMS STARTES REDNESS AND PAINFUL COUPLE DAY AGO, USED HEROINE LAST NIGHT. AAO X4, AMBULATORY WITH STEDAY GAIT. RESPIRATIONS ROOM AIR, EVEN AND UNLABORED. BOTH ARM CELLULITIS, NO DRAINAGE. C/O PAIN 10/0. VSS, ER MD MADE AWARE OF PT. STATUS.
--- NOTE | 2017-07-22 07:13 | NUR ---
REPORT GIVEN TO CARI CAI. PT. RESTING IN BED, NO S/SX OF DISTRESS AT THIS TIME.
--- NOTE | 2017-07-22 07:15 | NUR ---
RECEIVED REPORT FROM CARI THURMAN. Patient appears to be resting comfortably in bed. Vital Signs within normal limits. Respirations even and unlabored.REDDNESS BOTH UPPER ARM & PAIN 10/10.
--- NOTE | 2017-07-22 07:30 | NUR ---
Patient being evaluated by DR MIMS at bedside.
[2017-07-22] MEDS ORDERED: KETOROLAC 60 MG/2 ML VIAL IM ONE (07:35)
[2017-07-22] MEDS ORDERED: MORPHINE SULFATE 4 MG/ML SYR IM ONE (08:20)
[2017-07-22 08:42] VITALS: BP 119/62
--- NOTE | 2017-07-22 08:42 | NUR ---
Patient discharged with v/s stable. Written and verbal after care instructions given and explained. Patient alert, oriented and verbalized understanding of instructions. Ambulatory with steady gait. All questions addressed prior to discharge. ID band removed. Patient advised to follow up with PMD. Rx of KEFLEX, BACTRIM & MOTRIN given. Patient educated on indication of medication including possible reaction and side effects. Opportunity to ask questions provided and answered.
== END 2017-07-22 08:42 | disposition home or self-care (01) ==
LOC: MED 06:10
DX: L03.114 Cellulitis of left upper limb (principal); L03.113 Cellulitis of right upper limb; Z79.899 Other long term (current) drug therapy; Z91.040 Latex allergy status
CPT/HCPCS: 96372; 99284; J1885; J2270

== ENCOUNTER 2017-09-12 00:45 | Emergency (ER) | payer OTHER ==
[~2017-09-12] VITALS: Ht 177.8 cm; Wt 72.6 kg
[2017-09-12 01:12] VITALS: BP 148/80
--- NOTE | 2017-09-12 01:14 | NUR ---
TO LOBBY VIA W/C,A/W FOR BED, DONY NOTED
--- NOTE | 2017-09-12 01:51 | NUR ---
PATIENT PRESENTS TO ED WITH C/O INSECT BITE TO THE RIGHT CALF X 2 DAYS WHILE LAYING IN [place] . PT DENIES N/V/D; INSECT BITE AREA IS RED AND TENDER TO TOUCH;PT AAOX4 WITH EVEN AND STEADY GAIT; LUNGS CLEAR BL; HR EVEN AND REGULAR; PT DENIES ANY FEVER, CP, SOB, OR COUGH AT THIS TIME; PATIENT STATES PAIN OF 8/10 AT THIS TIME; VSS; PATIENT POSITIONED FOR COMFORT; HOB ELEVATED; BEDRAILS UP X2; BED DOWN. ER MD MADE AWARE OF PT STATUS.
--- NOTE | 2017-09-12 02:00 | NUR ---
Patient being evaluated by physician at bedside.
[2017-09-12] MEDS ORDERED: CLINDAMYCIN 150 MG CAP PO ONE (02:25)
[2017-09-12] MEDS ORDERED: KETOROLAC 60 MG/2 ML VIAL IM ONE (02:25)
--- NOTE | 2017-09-12 02:53 | NUR ---
Patient discharged with v/s stable. Written and verbal after care instructions given and explained. Patient alert, oriented and verbalized understanding of instructions. Ambulatory with steady gait. All questions addressed prior to discharge. ID band removed. Patient advised to follow up with PMD. Rx of BACTRIM DS, MOTRIN 800MG given. Patient educated on indication of medication including possible reaction and side effects. Opportunity to ask questions provided and answered.
[2017-09-12 02:54] VITALS: BP 136/87
== END 2017-09-12 02:53 | disposition home or self-care (01) ==
LOC: MED 00:45
DX: L03.115 Cellulitis of right lower limb (principal); S80.861A Insect bite (nonvenomous), right lower leg, initial encounter; R03.0 Elevated blood-pressure reading, without diagnosis of hypertension; Z91.040 Latex allergy status
CPT/HCPCS: 96372; 99283; J1885

== ENCOUNTER 2017-09-13 16:17 | Emergency (ER) | payer OTHER ==
[~2017-09-13] VITALS: Ht 177.8 cm; Wt 77.1 kg
[2017-09-13 16:33] VITALS: BP 129/79
--- NOTE | 2017-09-13 16:49 | NUR ---
DRESSING APPLIED TOP OF HEAD. NO ACTIVE BLEEDING AT THIS TIME. PATIENT TAKEN TO LOBBY VIA
--- NOTE | 2017-09-13 20:09 | NUR ---
PT TAKEN TO OF
--- NOTE | 2017-09-13 20:16 | NUR ---
WALK INTO STREET SIGN.NO LOC,NO VOMITING. NO ACTIVE BLEEDING AT THIS TIME. HX: SUBSTANCE ABUSE. PT AMBULATING IN HALLWAY, REPORTS PAIN TO SITE. ER MD INFORMED. POOR HYGIENE NOTED. DEMANDS DILAUDID IV. RESP EVEN AND UNLABORED, ON RA@99%
--- NOTE | 2017-09-13 20:16 | NUR ---
PT REFUSING VITAL SIGNS
[2017-09-13] MEDS ORDERED: HYDROcodone/APAP 10/325 MG 1 TAB TAB PO ONE (20:40)
--- NOTE | 2017-09-13 21:07 | NUR ---
MEDICTAED ORDERED, PT DEMANDING FOR DILAUDID AND STATES "NORCO IS LIKE CANDY" FOR HIM. ER INFORMED,LAC TRAY AT BEDSIDE FOR REPAIR.
--- NOTE | 2017-09-13 21:17 | NUR ---
CARLOZ HOLLIS AT BEDSIDE FOR LAC REPAIR.
--- NOTE | 2017-09-13 21:39 | NUR ---
Patient discharged with v/s stable. Written and verbal after care instructions given and explained. Patient alert, oriented and verbalized understanding of instructions. Ambulatory with steady gait. All questions addressed prior to discharge. ID band removed. Patient advised to follow up with PMD. Rx of MOTRIN, KEFLEX, BACTRIM given. Patient educated on indication of medication including possible reaction and side effects. Opportunity to ask questions provided and answered. PT REQUESTING A TAXI, CN INFORMED, STATES HE CAN ONLY GIVE HIM A BUS TOKEN. ER INFOPRMED WELL. PER POLICY, CAN NOT ACCOMADATE WITH TAXI, PT REFUSED VITALS SIGNS.
== END 2017-09-13 21:39 | disposition home or self-care (01) ==
LOC: MED 16:17
DX: S01.01XA Laceration without foreign body of scalp, initial encounter (principal); L03.115 Cellulitis of right lower limb; Z79.899 Other long term (current) drug therapy; Z91.040 Latex allergy status; W22.8XXA Striking against or struck by other objects, initial encounter; Y93.01 Activity, walking, marching and hiking; Y92.89 Other specified places as the place of occurrence of the external cause; Y99.8 Other external cause status
CPT/HCPCS: 99283

== ENCOUNTER 2017-11-01 21:40 | Emergency (ER) | payer OTHER ==
[~2017-11-01] VITALS: Ht 180.3 cm; Wt 72.6 kg
[2017-11-01 21:45] VITALS: BP 143/88
--- NOTE | 2017-11-01 21:48 | NUR ---
PT. AMBULATED TO ER BED 12
--- NOTE | 2017-11-01 21:49 | NUR ---
32 Y/O M W/C/O L UPPER ARM / L LOWER LEG PAIN R/T POSSIBLE SPIDER BITE. REDNESS, AND SWEELING NOTED. DENIES ANY FEVER OR MED HX. NO OTHER S/S OF DISTRESS NOTED. ER MADE AWARE.
[2017-11-01] MEDS ORDERED: MORPHINE SULFATE 4 MG/ML SYR IM ONE ×2 (22:25→22:40)
[2017-11-01] MEDS ORDERED: LIDOCAINE/EPI 2% 1:100000 20 ML VIAL INJ ONE (22:35)
--- NOTE | 2017-11-01 22:59 | NUR ---
RESIDENT PERFORMING AN I AND D AT BEDSIDE.
--- NOTE | 2017-11-01 23:00 | NUR ---
WOUND CULTURE COLLECTED BY RESIDENT.
[2017-11-01] MEDS ORDERED: cefTRIAXone 1,000 MG in LIDOCAINE MPF 1% - **ER/OR** 2.1 ML IM ONE (23:10)
[2017-11-01] MEDS ORDERED: LIDOCAINE MPF 1% - **ER/OR** 5 ML ONE (23:19)
[2017-11-01 23:47] VITALS: BP 127/78
--- NOTE | 2017-11-01 23:47 | NUR ---
Patient discharged with v/s stable. Written and verbal after care instructions given and explained. Patient alert, oriented and verbalized understanding of instructions. Ambulatory with steady gait. All questions addressed prior to discharge. ID band removed. Patient advised to follow up with PMD. Rx of TRAMADOL,BACTRIM, KEFLEX,TYLENOL WITH CODEINE given. Patient educated on indication of medication including possible reaction and side effects. Opportunity to ask questions provided and answered.
--- NOTE | 2017-11-04 15:57 | NUR ---
ADDENDUM:LA ABSCESS CULTURE- MRSA. REFERRED TO DR. WALSH,NO FARTHER TX,PATIENT DISCHARGED WITH PRESCRIPTION- BACTRIM AND KEFLEX
== END 2017-11-01 23:47 | disposition home or self-care (01) ==
LOC: MED 21:40
DX: L03.114 Cellulitis of left upper limb (principal); Z79.899 Other long term (current) drug therapy; Z91.040 Latex allergy status
CPT/HCPCS: 10060; 87070; 87075; 87186; 87205; 96372; 99284; J0696; J2001; J2270

== ENCOUNTER 2017-11-04 19:29 | Inpatient (IN) | payer OTHER ==
[~2017-11-04] VITALS: Ht 165.1 cm; Wt 67.6 kg
[2017-11-04 19:37] VITALS: BP 136/78
--- NOTE | 2017-11-04 21:47 | NUR ---
PATIENT BIB WHEELCHAIR TO ER BED 2.
--- NOTE | 2017-11-04 21:50 | NUR ---
Pt presents to ED with lesion to lower right leg, closed without drainage, redness and heat to palpation x1 week. Pt states 10/10 pain and feels generally ill throughout. VSS. Afebrile. A&Ox4. ER MD aware. Continue to monitor.
[2017-11-04] MEDS ORDERED: NACL 0.9% 1,000 ML IV SCH (22:13)
[2017-11-04] MEDS ORDERED: VANCOMYCIN 1,000 MG in DEXTROSE 5% 250 ML IV ONE (22:15)
[2017-11-04] MEDS ORDERED: ONDANSETRON 4 MG/2 ML VIAL IVP ONE (22:15)
[2017-11-04] MEDS ORDERED: MORPHINE SULFATE 2 MG/ML SYR IVP ONE (22:15)
[2017-11-04] MEDS ORDERED: KETOROLAC 30 MG/ML VIAL IVP ONE (22:15)
[2017-11-04] MEDS ORDERED: VANCOMYCIN 1,000 MG VIAL ONE (22:33)
[2017-11-04] MEDS ORDERED: NACL 0.9% 1,000 ML IV ONE (23:40)
[2017-11-05 00:37] LABS: BASOPHILS # (AUTO) 0.3 K/uL (0.00-0.22); BASOPHILS % (AUTO) 2.5 % (0.0-2.0); EOSINOPHILS # (AUTO) 0.2 K/uL (0-0.4); EOSINOPHILS % (AUTO) 1.4 % (0.0-4.0); HEMATOCRIT 36.5 % (36-52); LYMPHOCYTES % (AUTO) 14.8 % (20.5-51.1); MEAN CORPUSCULAR HEMOGLOBIN 27 pg (27-31); MEAN CORPUSCULAR HGB CONC 33 g/dL (33-37); MEAN CORPUSCULAR VOLUME 81 fL (80-94); MONOCYTES # (AUTO) 1.3 K/uL (0.8-1.0); MONOCYTES % (AUTO) 9.4 % (1.7-9.3); NEUTROPHILS # (AUTO) 9.7 K/uL (1.8-7.7); NEUTROPHILS % (AUTO) 71.9 % (42.2-75.2); PLATELET COUNT (AUTO) 383 K/uL (140-450); RED BLOOD CELL COUNT(AUTO) 4.53 MIL/uL (4.20-6.10); RED CELL DISTRIBUTION WIDTH 13.2 % (11.6-13.7); WHITE BLOOD COUNT (AUTO) 13.5 K/uL (4.8-10.8)
[2017-11-05 00:46] LABS: ANION GAP 9.1 (8-16); CARBON DIOXIDE 29.7 mmol/L (21-32); CREATININE 0.7 mg/dL (0.7-1.3); POTASSIUM 3.8 mmol/L (3.5-5.1)
[2017-11-05 00:52] LABS: ALBUMIN 3.1 g/dL (3.4-5.0); TOTAL BILIRUBIN 0.6 mg/dL (0.0-1.0)
[2017-11-05 00:59] LABS: PROTHROMBIN TIME 10.8 secs (10.8-13.4)
[2017-11-05] MEDS ORDERED: HYDROcodone/APAP 5/325 MG 1 TAB TAB PO PRN (01:30)
[2017-11-05] MEDS ORDERED: VANCOMYCIN PER PHARMACY MC PRN (01:30)
[2017-11-05] MEDS ORDERED: ONDANSETRON 4 MG/2 ML VIAL IVP PRN (01:30)
[2017-11-05] MEDS ORDERED: ACETAMINOPHEN 325 MG TAB PO PRN (01:30)
--- NOTE | 2017-11-05 02:30 | NUR ---
Patient will be admitted to care of . Admited to MED/SURG. Will go to [id number]. Belongings list completed. Report to CARI RIVERO.
[2017-11-05 03:00] VITALS: BP 119/80
--- NOTE | 2017-11-05 03:00 | NUR ---
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
--- NOTE | 2017-11-05 05:00 | NUR ---
PT VERBALIZED TO FEEL HUNGRY AND FOOD IS PROVIDES GOOD APPETITE
--- NOTE | 2017-11-05 05:51 | NUR ---
URINE SENT TO LAB
--- NOTE | 2017-11-05 06:41 | NUR ---
PT RESTING ON BED NOT DISTRESS NOTED AT THIS TIME PT WILL BE ENDORSED TO DAY SHIFT NURSE FOR CONTINUITY OF ARE
--- NOTE | 2017-11-05 07:10 | NUR ---
RECEIVED PATIENT REPORT AT BEDSIDE. PATIENT AWAKE AND ALERT. PATIENT C/O LEFT LEG PAIN. WILL MEDICATE. REDNESS AND SWELLING NOTED TO THE LEFT LEG. IV NOTED TO THE RIGHT AC. BED LOWERED WITH CALL LIGHT WITHIN REACH. WILL CONTINUE TO MONITOR
[2017-11-05 08:00] VITALS: BP 119/67
[2017-11-05] MEDS ORDERED: VANCOMYCIN HCL 750 MG in DEXTROSE 5% 250 ML IV SCH (08:00)
--- NOTE | 2017-11-05 08:58 | NUR ---
PATIENT HAS BEEN SCREENED AND CATEGORIZED LOW NUTRITION RISK. PATIENT WILL BE SEEN WITHIN 7 DAYS OF ADMISSION. 11/11/[address]
[2017-11-05] MEDS ORDERED: MULTIVITAMIN-12 10 ML, THIAMINE 100 MG, FOLIC ACID 1 MG, MAGNESIUM SULFATE 50% 2,000 MG... IV SCH ×10 (09:00)
[2017-11-05] MEDS: HYDROcodone/APAP 5/325 MG 1 TAB TAB PO PRN ×3 (09:25→20:59)
[2017-11-05] MEDS: ENOXAPARIN 40 MG/0.4 ML SYR SUBQ SCH (09:29)
--- NOTE | 2017-11-05 11:00 | NUR ---
PATIENT IN BED, WATCHING TELEVISION. NO S/S OF DISTRESS NOTED
[2017-11-05] MEDS: VANCOMYCIN 1GM/DEXT 5% PREMIX 200 ML IV SCH (11:29)
--- NOTE | 2017-11-05 14:00 | NUR ---
PATIENT ASLEEP IN BED. NO S/S OF DISTRESS NOTED
[2017-11-05 16:00] VITALS: BP 127/78
[2017-11-05] MEDS: NACL 0.9% 1,000 ML IV SCH (16:25)
[2017-11-05] MEDS ORDERED: HYDROmorphone PFS 2 MG/ML SYR IVP PRN (16:25)
--- NOTE | 2017-11-05 16:30 | NUR ---
PATIENT AWAKE IN BED. NO S/S OF DISTRESS NOTED
--- NOTE | 2017-11-05 19:23 | NUR ---
PATIENT REPORT GIVEN AT BEDSIDE. PATIENT ENDORSED IN STABLE CONDITION
--- NOTE | 2017-11-05 19:26 | NUR ---
PT RECEIVED IN BED. NAD. SHIFT ASSESSMENT DONE AND DOCUMENTED. PLAN OF CARE DISCUSSED. PT HAS NO COMPLAINTS AT THIS TIME. PT RECEIVED IN STABLE CONDITION.
--- NOTE | 2017-11-05 21:00 | NUR ---
PT C/O OF PAIN 02/16. MEDICATED PATIENT ORDERED, TOLERATED WELL. WILL CONTINUE TO MONITOR PT.
--- NOTE | 2017-11-05 21:07 | NUR ---
REASSESSED PT TEMP PREVIOUSLY ELEVATED AT 102.6 AT 1999. RECHECK SHOWED DECREASE AT 99.1 AT 2107. MEDICATED PATIENT TOLERATED WELL. WILL CONTINUE TO MONITOR PT. Addendum: 11/06/17 at 0050 by Agency 03 RN RN DISREGARD, CHARTING ON INCORRECT PATIENT
[2017-11-05 23:52] VITALS: BP 151/71
--- NOTE | 2017-11-05 23:57 | NUR ---
PATIENT ASLEEP IN BED. NO S/S OF DISTRESS NOTED
[2017-11-06] MEDS: VANCOMYCIN 1GM/DEXT 5% PREMIX 200 ML IV SCH ×2 (00:35→12:00)
[2017-11-06] MEDS: NACL 0.9% 1,000 ML IV SCH ×3 (02:25→23:10)
--- NOTE | 2017-11-06 07:20 | NUR ---
ASSUMED CONTINUITY OF CARE. NO SIGNS AND SYMPTOMS OF ACUTE DISTRESS NOTED. INITIAL ASSESSMENT DONE. PT. IV ACCESS ON LEFT SHOULDER GAUGE #22 WAS NOT WORKING. REFUSED IV INSERTION AT THIS TIME. EXPLAINED DIAGNOSIS, PLAN OF CARE, PAIN MANAGEMENT TEACHING, CONTACT ISOLATION PRECAUTION, USE OF CALL LIGHT/BED/TV/BATHROOM. VERBALIZED UNDERSTANDING. CALL LIGHT WITHIN REACH.
--- NOTE | 2017-11-06 07:24 | NUR ---
GAVE PATIENT REPORT AT BEDSIDE TO DAY NURSE, PATIENT ENDORSED IN STABLE CONDITION. PT SHOWS NO S/S OF DISTRESS, RESTING AND ASLEEP.
[2017-11-06 08:00] VITALS: BP 120/79
--- NOTE | 2017-11-06 08:00 | NUR ---
Patient's Plan of Care was discussed and reviewed with FIRE INVESTIGATOR: BILLY
[2017-11-06] MEDS: MULTIVITAMIN-12 10 ML, THIAMINE 100 MG, FOLIC ACID 1 MG, MAGNESIUM SULFATE 50% 2,000 MG... IV SCH ×5 (09:00)
[2017-11-06] MEDS: ENOXAPARIN 40 MG/0.4 ML SYR SUBQ SCH (09:15)
--- NOTE | 2017-11-06 09:15 | NUR ---
EXPLAINED TO PT. ABOUT MD ORDER OF BANANA BAG IV AND IVF INFUSION, AND IV INSERTION. PT. VERBALIZED UNDERSTANDING BUT REFUSED IV INSERTION. INFORMED CHARGE NURSE YOLANDA RIOS.
--- NOTE | 2017-11-06 09:32 | NUR ---
CLAY HOISTER MENDEZ REPORTED THAT PT. REFUSED AM BLOOD DRAW. EXPLAINED TO PT. ABOUT MD ORDER OF AM BLOOD DRAW . VERBALIZED UNDERSTANDING BUT PT. REFUSED.
--- NOTE | 2017-11-06 10:50 | NUR ---
OR NURSE SUDHA TRIED TO INSERT IV 3 TIMES BUT WAS UNSUCCESSFUL. INFORMED CHARGE NURSE YOLANDA RIOS.
--- NOTE | 2017-11-06 11:02 | NUR ---
DR. PEPE CAME AND SPOKE TO PT. AT BEDSIDE. INFORMED DR. PEPE THAT PT. HAD NO IV ACCESS.
[2017-11-06] MEDS ORDERED: MUPIROCIN 2% OINT 22 GM TUBE TP SCH (11:27)
[2017-11-06 12:00] VITALS: BP 123/74
[2017-11-06] MEDS ORDERED: CHLORHEXADINE GLUC 2% CLOTH TP SCH (12:10)
--- NOTE | 2017-11-06 12:10 | NUR ---
FAXED INITIAL REVIEW TO [facility] [phone] PHONE ANALY [phone] (MIKALA GOSS) ON 10/26/17. WAS TOLD ONLY TO FAX THE FACE SHEET TO THEM AT [phone]. THE REVIEWS GO TO [facility]. FAXED FACE SHEET TODAY.
[2017-11-06] MEDS: HYDROcodone/APAP 5/325 MG 1 TAB TAB PO PRN ×2 (12:41→21:59)
[2017-11-06 13:11] LABS: ANION GAP 11.3 (8-16); CARBON DIOXIDE 32.1 mmol/L (21-32); CREATININE 0.8 mg/dL (0.7-1.3); POTASSIUM 4.4 mmol/L (3.5-5.1)
[2017-11-06 13:45] LABS: BASOPHILS # (AUTO) 0.2 K/uL (0.00-0.22); BASOPHILS % (AUTO) 2.3 % (0.0-2.0); EOSINOPHILS # (AUTO) 0.1 K/uL (0-0.4); EOSINOPHILS % (AUTO) 1.3 % (0.0-4.0); HEMATOCRIT 42.5 % (36-52); HEMOGLOBIN 13.8 g/dL (12.0-18.0); LYMPHOCYTES # (AUTO) 1.5 K/uL (2.0-11.5); LYMPHOCYTES % (AUTO) 16.5 % (20.5-51.1); MEAN CORPUSCULAR HEMOGLOBIN 27 pg (27-31); MEAN CORPUSCULAR HGB CONC 33 g/dL (33-37); MEAN CORPUSCULAR VOLUME 81 fL (80-94); MONOCYTES # (AUTO) 0.6 K/uL (0.8-1.0); MONOCYTES % (AUTO) 6.3 % (1.7-9.3); NEUTROPHILS # (AUTO) 6.6 K/uL (1.8-7.7); NEUTROPHILS % (AUTO) 73.6 % (42.2-75.2); PLATELET COUNT (AUTO) 383 K/uL (140-450); RED BLOOD CELL COUNT(AUTO) 5.22 MIL/uL (4.20-6.10); RED CELL DISTRIBUTION WIDTH 13.1 % (11.6-13.7); WHITE BLOOD COUNT (AUTO) 8.9 K/uL (4.8-10.8)
[2017-11-06] MEDS: VANCOMYCIN 750 MG in DEXTROSE 5% 250 ML IV SCH ×2 (14:00→21:50)
--- NOTE | 2017-11-06 15:29 | NUR ---
CHARGE NURSE YOLANDA HENDRICKS -CARI CALLED DR. HERNANDEZ AND INFORMED THAT DR. PEPE WILL PUT CENTRAL LINE PLACEMENT, AND PLAN TO DO I & D ON LEFT FOOT. NO ADDITIONAL ORDER RECEIVED FROM DR. HERNANDEZ PER CHARGE NURSE.
--- NOTE | 2017-11-06 17:37 | NUR ---
PAGED DR. PEPE AT REGARDING PT. CENTRAL LINE PLACEMENT. LEFT CALL BACK NUMBER. INFORMED CHARGE NURSE YOLANDA RIOS.
--- NOTE | 2017-11-06 18:11 | NUR ---
DR. PEPE CALLED BACK, VERIFIED ORDER OF PT. CENTRAL LINE PLACEMENT. PER DR. PEPE CENTRAL LINE PLACEMENT WILL BE IN O.R. SOON. INFORMED CHARGE NURSE YOLANDA RIOS.
--- NOTE | 2017-11-06 19:10 | NUR ---
[facility]. IN STABLE CONDITION.
[2017-11-06] MEDS ORDERED: PROPOFOL 200 MG/20 ML VIAL IV ONE (19:15)
[2017-11-06] MEDS ORDERED: SEVOFLURANE 250 ML BTL INH ONE (19:15)
[2017-11-06] MEDS ORDERED: ONDANSETRON 4 MG/2 ML VIAL ONE (19:15)
--- NOTE | 2017-11-06 19:17 | NUR ---
REPORT GIVEN TO PATY RIOS. PT. IN O.R. FOR PROCEDURE.
--- NOTE | 2017-11-06 19:17 | NUR ---
RECEIVED REPORT FROM DAY SHIFT NURSE BILLY DE LA FUENTE PT CURRENTLY AT O.R. FOR PROCEDURE.
[2017-11-06] MEDS ORDERED: MORPHINE SULFATE 4 MG/ML SYR ONE ×3 (19:40→21:00)
[2017-11-06] MEDS ORDERED: MIDAZOLAM 2 MG/2 ML VIAL ONE (19:40)
[2017-11-06] MEDS ORDERED: fentaNYL 0.05 MG/ML VIAL ONE (19:40)
[2017-11-06] MEDS ORDERED: BUPIVACAINE-MPF 0.25% 30 ML VIAL INJ ONE (19:44)
[2017-11-06] MEDS: MORPHINE SULFATE 4 MG/ML SYR IVP PRN ×2 (20:50→21:05)
[2017-11-06] MEDS ORDERED: MORPHINE SULFATE 4 MG/ML SYR IVP PRN (20:55)
[2017-11-06] MEDS ORDERED: MORPHINE SULFATE 2 MG/ML SYR IVP PRN (20:55)
[2017-11-06] MEDS ORDERED: MIDAZOLAM 2 MG/2 ML VIAL IV ONE (20:55)
[2017-11-06] MEDS ORDERED: HYDROmorphone PFS 2 MG/ML SYR IVP PRN (20:55)
--- NOTE | 2017-11-06 21:18 | NUR ---
PT ARRIVED AT UNIT FROM OR. BEDSIDE REPORT RECEIVED FROM OR NURSE HENRIQUE RN, PT STABLE, NO DISTRESS NOTED, CENTRAL LINE ON THE R SUBCLAVIAN TRIPLE LUMEN, INTACT, DRESSING INTACT, INITIAL ASSESSMENT DONE, ALL SAFETY PRECAUTION MET, WILL CONTINUE TO MONITOR.
[2017-11-06 21:20] VITALS: BP 124/78
--- NOTE | 2017-11-06 21:45 | NUR ---
PT STATED HE IS HUNGRY THAT HE HAS NOT EATEN ANYTHING SINCE LAST NIGHT, CALLED DR. PEPE REGARDING PT DIET, STATED THAT IT IS OK FOR HIM TO EAT, PUT IN ORDERS. WILL CONTINUE TO MONITOR PT.
[2017-11-06 21:48] VITALS: BP 114/78
--- NOTE | 2017-11-06 21:55 | NUR ---
CALLED DR. HIDALGO REGARDING PT IV FLUIDS NS AND BANANA BAG, STATED TO GIVE PT ONE BANANA BAG PER DAY, AND CONTINUE WITH NS, WILL CONTINUE WITH ORDERS.
--- NOTE | 2017-11-06 21:59 | NUR ---
DUE MEDICATION GIVEN, PT TOLERATED WELL, PT C/O PAIN ON BLE 02/16, NORCO GIVEN, EDUCATE PT REGARDING PAIN MEDICATION. PT STATED UNDERSTANDING, BUT STILL REQUEST PAIN MEDICATION. PT STABLE, NO DISTRESS NOTED, CALL LIGHT WITHIN REACH, WILL CONTINUE TO MONITOR.
[2017-11-06 22:48] VITALS: BP 105/60
[2017-11-06 23:48] VITALS: BP 102/58
--- NOTE | 2017-11-07 01:17 | NUR ---
PT C/O OF PAIN ON THE L LEG 06/18, BP 123/65 HR OF 71, PAIN MEDICATION GIVEN, PT TOLERATED WELL, NO DISTRESS NOTED, CALL LIGHT WITHIN REACH, WILL CONTINUE TO MONITOR.
[2017-11-07] MEDS: HYDROmorphone PFS 2 MG/ML SYR IVP PRN ×6 (01:18→22:02)
--- NOTE | 2017-11-07 03:20 | NUR ---
PT SLEEPING, NO DISTRESS NOTED, CALL LIGHT WITHIN REACH, WILL CONTINUE TO MONITOR.
[2017-11-07] MEDS: VANCOMYCIN 750 MG in DEXTROSE 5% 250 ML IV SCH ×2 (05:38→14:15)
--- NOTE | 2017-11-07 05:43 | NUR ---
PT C/O OF PAIN, MEDICATION GIVEN, PT TOLERATED WELL, NO DISTRESS NOTED, CALL LIGHT WITHIN REACH.
--- NOTE | 2017-11-07 07:22 | NUR ---
ENDORSED PLAN OF CARE TO DAY SHIFT NURSE DREW ALCALA, PT STABLE, NO DISTRESS NOTED, CALL LIGHT WITHIN REACH.
--- NOTE | 2017-11-07 07:23 | NUR ---
PATIENT LYING IN BED SLEEPING, AROUSABLE BY VOICE. NO DISTRESS NOTED. DENIES ANY PAIN. RESPIRATIONS EVEN, UNLABORED, ON ROOM AIR. AAOX4, CALM, COOPERATIVE, SKIN COLOR APPROPRIATE TO ETHNICITY, WARM TO TOUCH. HAS LEFT LE CELLULITIS OF LEG S/P I&D AND DEBRIDEMENT ON 11/06/17. DRESSING IS DRY AND INTACT. FIRST DRESSING CHANGED TO BE BY DR. PEPE. IV SITE ON RIGHT IJ IS INTACT, PATENT, AND INFUSING IVF PER ORDERS. ABDOMEN SOFT, NON-DISTENDED. LUNGS CTA ON ALL LOBES. REVIEWED PLAN OF CARE WITH PATIENT. PATIENT VERBALIZED UNDERSTANDING. SAFETY MEASURES IN PLACE, CALL LIGHT WITHIN REACH. WILL CONTINUE TO MONITOR.
[2017-11-07 08:00] VITALS: BP 101/55
[2017-11-07] MEDS: NACL 0.9% 1,000 ML IV SCH ×2 (08:25→17:59)
[2017-11-07] MEDS ORDERED: MUPIROCIN 2% OINT 22 GM TUBE TP SCH (09:00)
[2017-11-07] MEDS: MUPIROCIN 2% OINT 22 GM TUBE TP SCH (09:24)
[2017-11-07] MEDS: ENOXAPARIN 40 MG/0.4 ML SYR SUBQ SCH (09:26)
[2017-11-07] MEDS: CHLORHEXADINE GLUC 2% CLOTH TP SCH (09:27)
--- NOTE | 2017-11-07 09:32 | NUR ---
PATIENT LYING IN BED COMFORTABLY. NO DISTRESS NOTED. SCHEDULED MEDICATIONS DUE GIVEN. SAFETY MEASURES IN PLACE, CALL LIGHT WITHIN REACH. WILL CONTINUE TO MONITOR.
[2017-11-07] MEDS: MULTIVITAMIN-12 10 ML, THIAMINE 100 MG, FOLIC ACID 1 MG, MAGNESIUM SULFATE 50% 2,000 MG... IV SCH ×5 (09:59)
[2017-11-07 10:07] LABS: BASOPHILS # (AUTO) 0.1 K/uL (0.00-0.22); BASOPHILS % (AUTO) 1.2 % (0.0-2.0); EOSINOPHILS # (AUTO) 0.2 K/uL (0-0.4); EOSINOPHILS % (AUTO) 1.5 % (0.0-4.0); HEMATOCRIT 36.7 % (36-52); HEMOGLOBIN 12.2 g/dL (12.0-18.0); LYMPHOCYTES # (AUTO) 1.4 K/uL (2.0-11.5); LYMPHOCYTES % (AUTO) 14.1 % (20.5-51.1); MEAN CORPUSCULAR HEMOGLOBIN 27 pg (27-31); MEAN CORPUSCULAR HGB CONC 33 g/dL (33-37); MEAN CORPUSCULAR VOLUME 82 fL (80-94); MONOCYTES # (AUTO) 0.8 K/uL (0.8-1.0); MONOCYTES % (AUTO) 8.3 % (1.7-9.3); NEUTROPHILS # (AUTO) 7.5 K/uL (1.8-7.7); NEUTROPHILS % (AUTO) 74.9 % (42.2-75.2); PLATELET COUNT (AUTO) 418 K/uL (140-450); RED BLOOD CELL COUNT(AUTO) 4.49 MIL/uL (4.20-6.10); RED CELL DISTRIBUTION WIDTH 13.1 % (11.6-13.7)
[2017-11-07 10:11] LABS: ANION GAP 10.5 (8-16); CARBON DIOXIDE 29.2 mmol/L (21-32); CREATININE 0.6 mg/dL (0.7-1.3); POTASSIUM 3.7 mmol/L (3.5-5.1)
--- NOTE | 2017-11-07 11:18 | NUR ---
PRIMARY RN AND PT. ARE INFORMED THE WOUND CONSULT PENDING DUE TO I&D LESS THAN 24 HOURS, WILL CHECK PT TOMORROW.
--- NOTE | 2017-11-07 13:39 | NUR ---
MISAEL NOTE CLINICAL INFORMATION FAXED TO [facility] / FAX# [phone], ATTN: YVES #[phone] Addendum: 11/07/17 at 1439 by Edwin Montoya RN MADONNA AGUILAR TO TAKE PATIENT ONCE DISCHARGED.
--- NOTE | 2017-11-07 14:15 | NUR ---
PATIENT LYING DOWN IN BED. COMPLAINS OF 8/10 LEFT LEG PAIN. DILAUDID GIVEN PER ORDERS. SCHEDULED MEDICATIONS DUE GIVEN. SAFETY MEASURES IN PLACE, CALL LIGHT WITHIN REACH. WILL CONTINUE TO MONITOR.
--- NOTE | 2017-11-07 14:40 | NUR ---
CM NOTE CONCURRENT REVIEW FAXED TO [facility] / FAX# [phone], ATTN: ANALY #[phone]
[2017-11-07 16:00] VITALS: BP 125/74
--- NOTE | 2017-11-07 16:00 | NUR ---
PATIENT LYING DOWN IN BED SLEEPING, AROUSABLE BY VOICE. NO DISTRESS NOTED. CONDITION UNCHANGED. WILL CONTINUE TO MONITOR.
--- NOTE | 2017-11-07 18:03 | NUR ---
PATIENT COMPLAINS OF LEFT LE LEG PAIN, MEDICATED WITH DILAUDID. SAFETY MEASURES IN PLACE, CALL LIGHT WITHIN REACH. WILL CONTINUE TO MONITOR.
--- NOTE | 2017-11-07 19:30 | NUR ---
GAVE REPORT TO STONE POLISHER HAND NURSE FOR CONTINUITY OF CARE. PATIENT IN STABLE CONDITION.
--- NOTE | 2017-11-07 19:31 | NUR ---
RECEIVED BEDSIDE REPORT FROM DAY SHIFT NURSE DREW RN, PT STABLE, NO DISTRESS NOTED, R IJ CENTRAL LINE TRIPLE LUMEN, INTACT, PATENT, PT ON ROOM AIR NO SOB, INITIAL ASSESSMENT DONE, ALL SAFETY PRECAUTION MET, WILL CONTINUE TO MOTOR. Addendum: 11/07/17 at 2033 by Elen Oliver RN DRESSING INTACT
[2017-11-07 20:29] LABS: BARBITURATE, URINE NEG. ng/ml (NEG <=200); BENZODIAZEPINE, URINE NEG. ng/mL (NEG <=200); CANNABINOID, URINE NEG. ng/mL (NEG <=50); COCAINE, URINE NEG. ng/mL (NEG <=300); OPIATE, URINE POS. ng/mL (NEG <=2000); PHENCYCLIDINE SCREEN,URINE NEG. ng/mL (NEG <=25)
[2017-11-07] MEDS: VANCOMYCIN 1GM/DEXT 5% PREMIX 200 ML IV SCH (21:26)
--- NOTE | 2017-11-07 21:26 | NUR ---
DUE MEDICATION GIVEN, PT TOLERATED WELL, NO DISTRESS NOTED, CALL LIGHT WITHIN REACH, WILL CONTINUE TO MONITOR.
--- NOTE | 2017-11-07 22:02 | NUR ---
PT C/O PAIN ON THE L LEG 05/19, PAIN MEDICATION PER MD ORDERED GIVEN, PT STABLE, NO DISTRESS NOTED, CALL LIGHT WITHIN REACH, WILL CONTINUE TO MONITOR.
[2017-11-08] VITALS: BP 122/72
--- NOTE | 2017-11-08 00:15 | NUR ---
CHECKED ON PT, PT SLEEPING, NO DISTRESS NOTED, CALL LIGHT WITHIN REACH, WILL CONTINUE TO MONITOR.
[2017-11-08] MEDS: HYDROmorphone PFS 2 MG/ML SYR IVP PRN ×3 (02:02→10:22)
--- NOTE | 2017-11-08 02:02 | NUR ---
PT C/O PAIN ON THE LEG 05/19, PAIN MEDICATION GIVEN, PT TOLERATED WELL, NO DISTRESS NOTED, CALL LIGHT WITHIN REACH.
[2017-11-08] MEDS: NACL 0.9% 1,000 ML IV SCH (04:25)
[2017-11-08] MEDS: VANCOMYCIN 1GM/DEXT 5% PREMIX 200 ML IV SCH (05:11)
--- NOTE | 2017-11-08 05:11 | NUR ---
DUE MEDICATION GIVEN, PT TOLERATED WELL, NO DISTRESS NOTED, CALL LIGHT WITHIN REACH, WILL CONTINUE TO MONITOR.
--- NOTE | 2017-11-08 06:10 | NUR ---
PT C/O PAIN 9/10 ON THE L LEG, PAIN MEDICATION GIVEN, PT TOLERATED WELL, NO DISTRESS NOTED, CALL LIGHT WITHIN REACH.
--- NOTE | 2017-11-08 07:29 | NUR ---
ENDORSED PT TO DAY SHIFT NURSE LINO RN, PT STABLE, NO DISTRESS NOTED, CALL LIGHT WITHIN REACH.
--- NOTE | 2017-11-08 07:30 | NUR ---
RECEIVED PT ON BED AAOX4. NO SOB NOTED. NO C/O PAIN AT THIS TIME. WITH RT IJ TRIPLE LUMEN CENTRAL PATENT AND INTACT. CHEST CLEAR. ABDOMEN SOFT, BOWEL SOUNDS PRESENT. DRESSING TO LEFT LEG DRY AND INTACT. INSTRUCTED PT TO CALL FOR ASSISTANCE, CALL LIGHT WITHIN, PT VERBALIZED UNDERSTANDING.
[2017-11-08 07:50] LABS: BASOPHILS # (AUTO) 0.2 K/uL (0.00-0.22); BASOPHILS % (AUTO) 2.5 % (0.0-2.0); EOSINOPHILS # (AUTO) 0.2 K/uL (0-0.4); EOSINOPHILS % (AUTO) 2.2 % (0.0-4.0); HEMATOCRIT 38.6 % (36-52); HEMOGLOBIN 12.5 g/dL (12.0-18.0); LYMPHOCYTES # (AUTO) 1.8 K/uL (2.0-11.5); LYMPHOCYTES % (AUTO) 19.7 % (20.5-51.1); MEAN CORPUSCULAR HEMOGLOBIN 27 pg (27-31); MEAN CORPUSCULAR HGB CONC 32 g/dL (33-37); MEAN CORPUSCULAR VOLUME 82 fL (80-94); MONOCYTES # (AUTO) 0.9 K/uL (0.8-1.0); MONOCYTES % (AUTO) 9.2 % (1.7-9.3); NEUTROPHILS # (AUTO) 6.2 K/uL (1.8-7.7); NEUTROPHILS % (AUTO) 66.4 % (42.2-75.2); PLATELET COUNT (AUTO) 399 K/uL (140-450); RED CELL DISTRIBUTION WIDTH 12.8 % (11.6-13.7); WHITE BLOOD COUNT (AUTO) 9.3 K/uL (4.8-10.8)
[2017-11-08 08:00] VITALS: BP 105/64
--- NOTE | 2017-11-08 09:30 | NUR ---
WOUND CARE EVALUATION NOTE REASON FOR EVALUATION: S/P I&D ABSCESS LEFT LOWER LEG SKIN ASSESSMENT DONE ON THIS 32 Y/O MALE ADMITTED TO [facility], WITH INITIAL DIAGNOSIS OF ABSCESS LEFT LOWER LEG. PAST MEDICAL RECURRENT CELLULITIS . ALL ABOVE INFORMATION OBTAINED FROM THE PT. AND ADMISSION H&P. LABS ARE WBC 9.3 H/H 12.5/38.6, GLUCOSE 100, ALBUMIN 3.1. PATIENT IS AAOX4, SKIN WARM AND DRY. SKIN TURGOR TIGHT. BLE HAIR GROWTH, BILATERAL PEDAL PULSES PRESENT AND NORMAL. CAPILLARY REFILLED <3 SEC. PLAN OF CARE AND WOUND CARE EDUCATION PROVIDE TO PT. AND PT VERBALIZES UNDERSTANDING. POC DISCUSSED WITH PRIMARY RN. INTEGUMENTARY: LEFT LOWER LEG - S/P I&D SITE CLEAN, SMALL AMOUNT OF SANGUINEOUS DRAINAGE, NO ODOR. 5X2.8X0.3CM WOUND BED RED, CY WOUND INTACT. WOUND EDGE IS WELL DEFINED, PAIN LEVEL 5/10 MULTIPLE HEALED SCARS FROM PREVIOUS CELLULITIS ALL OVER THE BODY. RECOMMENDATIONS: -CLEANSE LLE WOUND WITH NS. PAT DRY, APPLY SILVERSORB GEL WITH ADAPTIC DRESSING AND COVER WITH DRY DRESSING AND SECURE WITH TAPE QOD AND PRN IF SOILING -KEEP AREA DRY AND CLEAN AT ALL TIMES -ASSESS AND MONITOR WOUND SITE DURING WOUND CARE AND NOTIFY PHYSICIAN FOR ANY S/S INFECTION OR CHANGE OF CONDITION RECOMMENDATIONS DISCUSSED WITH PRIMARY RN. WILL FOLLOW UP PATIENT PRN. PLEASE CONTACT WOUND CARE NURSE FOR ANY CONCERNS, QUESTIONS AND CHANGES IN SKIN CONDITION.
[2017-11-08] MEDS: MULTIVITAMIN-12 10 ML, THIAMINE 100 MG, FOLIC ACID 1 MG, MAGNESIUM SULFATE 50% 2,000 MG... IV SCH ×5 (09:31)
[2017-11-08] MEDS: ENOXAPARIN 40 MG/0.4 ML SYR SUBQ SCH (09:31)
[2017-11-08] MEDS: MUPIROCIN 2% OINT 22 GM TUBE TP SCH (09:32)
[2017-11-08] MEDS: HYDROcodone/APAP 5/325 MG 1 TAB TAB PO PRN (09:33)
[2017-11-08] MEDS: CHLORHEXADINE GLUC 2% CLOTH TP SCH (09:33)
--- NOTE | 2017-11-08 09:40 | NUR ---
LEFT LEG WOUND DRESSING DONE BY WOUND CARE NURSE. PHOTO TAKEN AND DOCUMENTED.
--- NOTE | 2017-11-08 10:49 | NUR ---
FAXED CONCURRENT REVIEW TO [facility] [phone] PHONE ANALY [phone] SPOKE WITH YVES FROM [facility]. THE PATIENT CAN GO TO ROOM 215C UNDER DR. SIMPSON. CALL REPORT TO [phone] STATION 3. I CALLED ANALY FROM [facility] AND INFORMED HER. THE AUTH FOR [facility] IS [id number]. I CALLED [facility] AND SET UP TRANSPORT FOR 1:30 PM. SUKHJINDER ALCALAUNDERGROUND UTILITY LOCATOR NURSE AWARE. ANALY SAID SHE WOULD CALL [facility] WITH THEIR AUTH.
[2017-11-08 11:59] VITALS: BP 106/61
--- NOTE | 2017-11-08 12:01 | NUR ---
I SPOKE WITH ALISSON IN ADMISSIONS FROM [facility] AND MADE SURE SHE KNEW THIS PATIENT WAS POSITIVE FOR MRSA IN NARES AND THAT TREATMENT STARTED ON 11/07/17.
--- NOTE | 2017-11-08 12:15 | NUR ---
RECEIVED A [facility]SON [facility] SHE SAID THE PATIENT WILL NOW GO TO ROOM 207B. CALLED AND AWARE OF ROOM CHANGE. CALLED SUKHJINDER ALCALAAUDIO VISUAL SECRETARY NURSE AND INFORMED HER.
--- NOTE | 2017-11-08 12:18 | NUR ---
RECEIVED A CALL FROM ALISSON FROM [facility]. THE PATIENT WILL NOW GO TO ROOM 207B. I CALLED IN INFORMED THEM OF THE ROOM CHANGE. I CALLED RHEA ALCALA CHARGE NURSE AND INFORMED HER.
[2017-11-08] MEDS ORDERED: ROC2I (12:29)
--- NOTE | 2017-11-08 13:00 | NUR ---
REPORT GIVEN TO NORM AT [facility] IN [place], PT IS GOING TO ROOM 207-B.
[2017-11-08] MEDS ORDERED: BACTO TP (13:11)
--- NOTE | 2017-11-08 13:20 | NUR ---
DISCHARGE INSTRUCTIONS GIVEN TO PT WHICH VERBALIZED FULL UNDERSTANDING OF THE TEACHINGS GIVEN AND THE REASON WHY HE IS GOING TO SNF. RT IJ CENTRAL LINE DRESSING ALSO CHANGED.
--- NOTE | 2017-11-08 13:30 | NUR ---
DILAUDID 1 MG IVP GIVEN, MEDICATION WAS TIMED OUT AND DID NOT SAVE.
--- NOTE | 2017-11-08 13:45 | NUR ---
PT WHEELED OUT BY [facility] VIA WHEEL CHAIR IN STABLE CONDITION. NO SOB NOTED. NO C/O PAIN AT THIS TIME. DRESSING TO LT LEG WOUND DRY AND INTACT.
[2017-11-08] MEDS ORDERED: OIL EMULSION DRESSING TP PRN (14:40)
[2017-11-08] MEDS ORDERED: OIL EMULSION DRESSING TP SCH (15:00)
[2017-11-08 17:11] LABS: ANION GAP 8.2 (8-16); CARBON DIOXIDE 30.9 mmol/L (21-32); CREATININE 0.6 mg/dL (0.7-1.3); POTASSIUM 4.1 mmol/L (3.5-5.1)
[2017-11-10] MEDS ORDERED: OIL EMULSION DRESSING TP SCH (09:00)
== END 2017-11-08 13:45 | DRG 383 ==
LOC: MED 19:29 → EDBEDREQSVC 11-05 01:27 → MTU 11-05 01:31
PROVIDERS: ADMIT Hospitalist; ATTEND Hospitalist
PROC: 0JBP0ZZ Excision of Left Lower Leg Subcutaneous Tissue and Fascia, Open Approach (ICD-10-PCS; 2017-11-06)
PROC: 02H633Z Insertion of Infusion Device into Right Atrium, Percutaneous Approach (ICD-10-PCS; 2017-11-06)
PROC: B543ZZA Ultrasonography of Right Jugular Veins, Guidance (ICD-10-PCS; 2017-11-06)
PROC: 0Y9J0ZZ Drainage of Left Lower Leg, Open Approach (ICD-10-PCS; principal; 2017-11-06 19:05)
DX: L03.116 Cellulitis of left lower limb (principal); R65.10 Systemic inflammatory response syndrome (SIRS) of non-infectious origin without acute organ dysfunction; L02.416 Cutaneous abscess of left lower limb; F17.210 Nicotine dependence, cigarettes, uncomplicated; E44.1 Mild protein-calorie malnutrition; F11.10 Opioid abuse, uncomplicated; G89.29 Other chronic pain; F19.11 Other psychoactive substance abuse, in remission; Z91.040 Latex allergy status; Z59.0 Homelessness; Z68.24 Body mass index [BMI] 24.0-24.9, adult
CPT/HCPCS: 36415; 71045; 76705; 80048; 80053; 80202; 80305; 83605; 85025; 85610; 85730; 87040; 87070; 87075; 87081; 87186; 87205; 93005; 96361; 96365; 96375; 99285; A9153; J1170; J1650; J1885; J2250; J2270; J2405; J2704; J3010; J3370; J3411; J3475; J3490; J7030; J7060; Q0092

== ENCOUNTER 2018-07-30 16:35 | Emergency (ER) | payer OTHER ==
[~2018-07-30] VITALS: Ht 172.7 cm; Wt 73.9 kg
[~2018-07-30 16:35] MED LIST changes: -ACET-2858 PO; +BACTO TP; -CLIN300C2 IV; +HYDR-5092 PO; +ROC2I
[2018-07-30 16:40] VITALS: BP 136/81
--- NOTE | 2018-07-30 16:40 | NUR ---
33 YO M BIB MOTHER W/ C/O ABSCESS TO LEFT UPPER ARM X 3-4 DAYS. PAIN 8/10. REPORTS FEELING "FEVERISH", TEMP 99.5 AT THIS TIME. REPORTS NAUSEA, DENIES VOMITING/DIARRHEA. PT IS AAOX4, VSS AT THIS TIME, BED DOWN, BEDRAIL UP X 1, ER MD AWARE AND NOTIFIED OF PT STATUS. HX; BIPOLAR, ABSCESS RX; METHADONE, "PSYCH MEDS"
--- NOTE | 2018-07-30 17:00 | NUR ---
Patient being evaluated by physician at bedside.
[2018-07-30] MEDS ORDERED: IBUPROFEN 400 MG TAB PO ONE (17:35)
[2018-07-30 18:03] VITALS: BP 125/73
--- NOTE | 2018-07-30 18:03 | NUR ---
Patient discharged with v/s stable. Written and verbal after care instructions given and explained. Patient alert, oriented and verbalized understanding of instructions. Ambulatory with steady gait. All questions addressed prior to discharge. ID band removed. Patient advised to follow up with PMD. Rx of tramadol, cephalexin and naprosyn given. Patient educated on indication of medication including possible reaction and side effects. Opportunity to ask questions provided and answered.
== END 2018-07-30 18:03 | disposition home or self-care (01) ==
LOC: MED 16:35
DX: L03.114 Cellulitis of left upper limb (principal); F31.9 Bipolar disorder, unspecified; Z91.040 Latex allergy status; Z79.891 Long term (current) use of opiate analgesic; Z79.2 Long term (current) use of antibiotics; Z79.899 Other long term (current) drug therapy
CPT/HCPCS: 90471; 90715; 99283

== ENCOUNTER 2018-11-23 14:13 | Emergency (ER) | payer OTHER ==
[~2018-11-23] VITALS: Ht 180.3 cm; Wt 80.7 kg
[2018-11-23 14:27] VITALS: BP 134/85
--- NOTE | 2018-11-23 14:52 | NUR ---
PATIENT PRESENTS TO ED WITH C/O SPIDER BITE TO LEFT UPPER ARM THAT HAS BECOME RED AND SWOLLEN X 3 DAYS. PT STATES PAIN 8/10 AT SITE. ELEVATED BUMP AND REDNESS SWELLING NOTED . AAOX4 WITH EVEN AND STEADY GAIT; LUNGS CLEAR BL; HR EVEN AND REGULAR; PT DENIES ANY FEVER, CP, SOB, OR COUGH AT THIS TIME; DENIES N/V/D; SKIN IS PINK/WARM/DRY;VSS; PATIENT POSITIONED FOR COMFORT; HOB ELEVATED; BEDRAILS UP X2; BED DOWN. ER MD MADE AWARE OF PT STATUS.
--- NOTE | 2018-11-23 16:00 | NUR ---
Patient being evaluated by physician at bedside.
[2018-11-23] MEDS ORDERED: fentaNYL 0.05 MG/ML VIAL IM ONE (16:25)
[2018-11-23] MEDS ORDERED: LIDOCAINE 1% 500 MG/50 ML VIAL INJ SCH (16:25)
[2018-11-23] MEDS ORDERED: CEPHALEXIN 500 MG CAP PO ONE (16:25)
[2018-11-23] MEDS ORDERED: DOXYCYCLINE 100 MG CAP PO SCH (16:25)
[2018-11-23] MEDS ORDERED: LIDOCAINE MPF 1% 5mL VIAL ONE (16:50)
--- NOTE | 2018-11-23 16:56 | NUR ---
DR. BROOKS DOING I&D AT BEDSIDE.
[2018-11-23 17:30] VITALS: BP 134/85
--- NOTE | 2018-11-23 17:30 | NUR ---
Patient discharged with v/s stable. Written and verbal after care instructions given and explained. Patient alert, oriented and verbalized understanding of instructions. Ambulatory with steady gait. All questions addressed prior to discharge. ID band removed. Patient advised to follow up with PMD. Rx of IBUPROFEN, CLINDAMYCIN given. Patient educated on indication of medication including possible reaction and side effects. Opportunity to ask questions provided and answered.
== END 2018-11-23 17:30 | disposition home or self-care (01) ==
LOC: MED 14:13
DX: L02.414 Cutaneous abscess of left upper limb (principal); L03.114 Cellulitis of left upper limb; Z91.040 Latex allergy status; Z79.899 Other long term (current) drug therapy
CPT/HCPCS: 10060; 87070; 87075; 96372; 99283; J2001; J3010

== ENCOUNTER 2019-04-12 01:00 | Emergency (ER) | payer OTHER ==
[~2019-04-12] VITALS: Ht 177.8 cm; Wt 72.6 kg
[2019-04-12 01:05] VITALS: BP 136/84
[2019-04-12] MEDS ORDERED: KETOROLAC 60 MG/2 ML VIAL IM ONE (01:45)
[2019-04-12] MEDS ORDERED: LIDOCAINE 1% ***ER ONLY *** 10 MG/ML VIAL INJ ONE (02:15)
[2019-04-12] MEDS ORDERED: LIDOCAINE MPF 1% - 5 mL VIAL 5 ML ONE (02:30)
== END 2019-04-12 03:10 | disposition home or self-care (01) ==
LOC: MED 01:00
DX: L02.413 Cutaneous abscess of right upper limb (principal); L03.113 Cellulitis of right upper limb; F17.200 Nicotine dependence, unspecified, uncomplicated; F19.10 Other psychoactive substance abuse, uncomplicated; Z88.8 Allergy status to other drugs, medicaments and biological substances; Z91.040 Latex allergy status; Z79.899 Other long term (current) drug therapy
CPT/HCPCS: 10060; 96372; 99283; J1885; J2001

== ENCOUNTER 2019-09-11 13:07 | Emergency (ER) | payer OTHER ==
[~2019-09-11] VITALS: Ht 177.8 cm; Wt 77.1 kg
[2019-09-11 13:08] VITALS: BP 122/78
--- NOTE | 2019-09-11 13:14 | NUR ---
PT DOES NOT WISH TO BE SEEN BY ERMD. PT IS ALERT AND ORIENTED X4. GCS 15. PT GOT UP FROM [facility] AND LEFT OUT OF FACILITY WITHOUT BEING SEEN.
== END 2019-09-11 13:14 | disposition left against medical advice (07) ==
LOC: MED 13:07
DX: R53.83 Other fatigue (principal); Z53.21 Procedure and treatment not carried out due to patient leaving prior to being seen by health care provider

== ENCOUNTER 2019-10-04 19:59 | Emergency (ER) | payer OTHER ==
[~2019-10-04] VITALS: Ht 177.8 cm; Wt 72.6 kg
--- NOTE | 2019-10-04 20:09 | NUR ---
CALLED FOR TRIAGE, NO RESPONSE.
--- NOTE | 2019-10-04 20:18 | NUR ---
2ND CALL FOR TRIAGE, NO ANSWER.
[2019-10-04 20:30] VITALS: BP 124/82
--- NOTE | 2019-10-04 20:33 | NUR ---
TO LOBBY A/W BED , AMBULATORY
--- NOTE | 2019-10-04 21:49 | NUR ---
34 Y/O MALE C/O LT ARM PAIN AND REDNESS X 2 DAYS. PT STATES FEVER AND SWEATS SINCE REDNESS BEGAN. NO DRAINAGE NOTED. +CMS. PT SITTING IN [facility] CALM AND PLEASANT. AFEBRILE AT THIS TIME. VSS. MEDHX: DENIES ALLEGIES: LATEX, QUETIAPINE
--- NOTE | 2019-10-04 21:51 | NUR ---
DR HOFFMAN AT [facility] EXAMINING PT.
--- NOTE | 2019-10-04 21:54 | NUR ---
PT AMBULATED TO BED 08 WITH STEADY GAIT
[2019-10-04] MEDS ORDERED: KETOROLAC 30 MG/ML VIAL IM ONE (21:55)
[2019-10-04] MEDS ORDERED: LIDOCAINE/EPI 2% 1:100000 20 ML VIAL INJ ONE (21:55)
--- NOTE | 2019-10-04 22:41 | NUR ---
PT WOUND COVERED WITH NON ADHERENT DRESSING AND WRAPPED WITH COFLEX
[2019-10-04 22:52] VITALS: BP 124/82
--- NOTE | 2019-10-04 22:52 | NUR ---
Patient discharged with v/s stable. Written and verbal after care instructions given and explained. Patient alert, oriented and verbalized understanding of instructions. Ambulatory with steady gait. All questions addressed prior to discharge. ID band removed. Patient advised to follow up with PMD. Rx of IBUPROFEN; BACTRIM; KEFLEX given. Patient educated on indication of medication including possible reaction and side effects. Opportunity to ask questions provided and answered.
== END 2019-10-04 22:52 | disposition home or self-care (01) ==
LOC: MED 19:59
DX: L02.414 Cutaneous abscess of left upper limb (principal); Z79.899 Other long term (current) drug therapy; Z79.2 Long term (current) use of antibiotics; Z79.891 Long term (current) use of opiate analgesic; Z91.040 Latex allergy status; Z88.8 Allergy status to other drugs, medicaments and biological substances
CPT/HCPCS: 10060; 96374; 99283; J1885; J2001

== ENCOUNTER 2019-10-17 09:11 | Emergency (ER) | payer OTHER ==
[~2019-10-17] VITALS: Ht 177.8 cm; Wt 68.0 kg
[2019-10-17 09:17] VITALS: BP 117/78
--- NOTE | 2019-10-17 09:26 | NUR ---
34YO M BIBA DUE TO ETOH AND XANAX OVERDOSE. PT ADMITS TO REGULAR HEROINE USE, MOST RECENTLY LAST WEEK. PT IS LETHARGIC, GCS 14, AOX4. PERRL 2MM. PT IS TACHYCARDIC AT 143 BPM. BREATH SOUNDS CLEAR ON ALL LUNG SHEA. PT IS SLEEPING COMFORTABLY IN BED, NO DISTRESS NOTED. SIDE RAILS UP. ER MD MADE AWARE OF PT STATUS. PMH: ANXIETY, BIPOLAR, SCHIZOPHRENIA MEDS: NON-COMPLIANT (UNABLE TO REFILL MEDICATIONS) ALLERGIES: LATEX, QUETIAPINE
[2019-10-17] MEDS ORDERED: NACL 0.9% 1,000 ML IV ONE (09:50)
--- NOTE | 2019-10-17 10:30 | NUR ---
PT REFUSED IV-ER NOTIFTED
[2019-10-17 11:01] VITALS: BP 117/78
== END 2019-10-17 11:01 | disposition home or self-care (01) ==
LOC: MED 09:11
DX: F10.129 Alcohol abuse with intoxication, unspecified (principal); F41.9 Anxiety disorder, unspecified; F20.9 Schizophrenia, unspecified; F17.200 Nicotine dependence, unspecified, uncomplicated; Z88.8 Allergy status to other drugs, medicaments and biological substances; Z91.040 Latex allergy status; Z79.899 Other long term (current) drug therapy
CPT/HCPCS: 36415; 93005; 99284; G0482

== ENCOUNTER 2021-07-19 19:07 | Emergency (ER) | payer OTHER, SELFPAY ==
[~2021-07-19] VITALS: Ht 177.8 cm; Wt 77.1 kg
[~2021-07-19 19:07] MED LIST changes: -BACTO TP; +CEPH250C16 PO; -DOL10 PO; +METH-1550 PO; -ROC2I
[2021-07-19 19:10] VITALS: BP 144/97
--- NOTE | 2021-07-19 19:15 | NUR ---
PT BIBA. TAKEN TO BED 11
--- NOTE | 2021-07-19 19:32 | NUR ---
PATIENT BIB FROM CAR FOR C/O DRUG INGESTION AFTER MOM WITNESS HIM "SLUPPED OVER IN THE CAR." PATIENT GIVEN NARCAN 2MG IN BY EMS PRIOR TO ARRIVAL. PATIENT STATES, "I TAKE XANNAX AND I ALSO TOOK A NORCO FOR MY TOOTH ACHE AND I THINK IT MESSED ME UP." PATIENT PUPILS 3MM BRISK, GCS 15 A&O X4. PATIENT DENIES PAIN AT THIS TIME. DENIES N/V. PATIENT PLACED ON CARDIAC MONIOR. 98% ON RA. MEDHX: DENIES ALLERGIES: LATEX, QUETIAPINE.
--- NOTE | 2021-07-19 19:34 | NUR ---
DONY WENT TO ASSESS PATIENT AT BEDSIDE. PATIENT NO LONGER IN BED. PATIENT ELOPED FROM FACILITY. DISCHARGE INSTRUCTIONS NOT GIVEN TO PATIENT. DR. JAMISON MADE AWARE.
[2021-07-19 19:35] VITALS: BP 144/97
== END 2021-07-19 19:34 | disposition left against medical advice (07) ==
LOC: MED 19:07
DX: T40.2X5A Adverse effect of other opioids, initial encounter (principal); T42.4X5A Adverse effect of benzodiazepines, initial encounter; Z53.21 Procedure and treatment not carried out due to patient leaving prior to being seen by health care provider; Y92.89 Other specified places as the place of occurrence of the external cause

== ENCOUNTER 2021-08-02 10:03 | Emergency (ER) | payer OTHER ==
[~2021-08-02] VITALS: Ht 177.8 cm; Wt 77.1 kg
[2021-08-02 10:06] VITALS: BP 141/77
--- NOTE | 2021-08-02 10:16 | NUR ---
PT WHEELCHAIR ASSISTED TO BED 11
--- NOTE | 2021-08-02 10:17 | NUR ---
PATIENT PRESENTS TO ED WITH ABCESS TO RIGHT HIP. PT STATES PAIN, REDNESS, AND SWELLING X3 DAYS. DENIES N/V/D; SKIN IS PINK/WARM/DRY; AAOX4 WITH EVEN AND STEADY GAIT; PT DENIES ANY FEVER, CP, SOB, OR COUGH AT THIS TIME; PATIENT STATES PAIN OF 10/10 AT THIS TIME; VSS; PATIENT POSITIONED FOR COMFORT; HOB ELEVATED; BEDRAILS UP X1; BED DOWN. ER MD MADE AWARE OF PT STATUS.
[2021-08-02] MEDS ORDERED: NACL 0.9% 1,000 ML IV ONE (10:35)
[2021-08-02] MEDS ORDERED: KETOROLAC 30 MG/ML VIAL IVP ONE (10:40)
--- NOTE | 2021-08-02 10:45 | NUR ---
PT REFUSED FLUIDS AND TORADOL, ER MADE AWARE
--- NOTE | 2021-08-02 11:07 | NUR ---
DR MIMS AT BEDSIDE EVALUATING PT
--- NOTE | 2021-08-02 11:07 | NUR ---
ER AT BEDSIDE
[2021-08-02] MEDS ORDERED: LIDOCAINE MPF 1% 10 MG/ML VIAL INJ ONE ×2 (11:15→12:40)
[2021-08-02] MEDS ORDERED: MORPHINE SULFATE 4 MG/ML SYR IM ONE ×2 (11:15→12:15)
--- NOTE | 2021-08-02 12:57 | NUR ---
PATIENT'S WOUND ON RIGHT BUTTOCKS WAS DRESSED WITH 4X4 GAUZE AND TAPED WITH ADHERENING GAUZE ROLL
[2021-08-02] MEDS ORDERED: ACET-8386 PO (13:05)
[2021-08-02] MEDS ORDERED: CEPH-588 PO (13:05)
[2021-08-02 13:18] VITALS: BP 111/68
--- NOTE | 2021-08-02 13:18 | NUR ---
Patient discharged with v/s stable. Written and verbal after care instructions ABOUT SKIN ABSCESS AND CELLULITIS given and explained. Patient alert, oriented and verbalized understanding of instructions. Wheel Chair Assisted with to car. All questions addressed prior to discharge. ID band removed. Patient advised to follow up with PMD. Rx of NORCO 5-325MG AND KEFLEX given. Patient educated on indication of medication including possible reaction and side effects. Opportunity to ask questions provided and answered.
== END 2021-08-02 13:18 | disposition home or self-care (01) ==
LOC: MED 10:03
DX: L02.415 Cutaneous abscess of right lower limb (principal); L03.115 Cellulitis of right lower limb; F20.9 Schizophrenia, unspecified; F17.200 Nicotine dependence, unspecified, uncomplicated; Z79.899 Other long term (current) drug therapy; Z88.8 Allergy status to other drugs, medicaments and biological substances; Z91.040 Latex allergy status
CPT/HCPCS: 10060; 96372; 99284; J2001; J2270; J1885

== ENCOUNTER 2021-11-30 21:40 | Emergency (ER) | payer OTHER ==
[~2021-11-30] VITALS: Ht 177.8 cm; Wt 72.6 kg
[~2021-11-30 21:40] MED LIST changes: +ACET-8386 PO; +CEPH-588 PO
[2021-11-30 21:45] VITALS: BP 123/83
--- NOTE | 2021-11-30 21:45 | NUR ---
PT PEDRITO ALS. TAKEN TO BED 10
--- NOTE | 2021-11-30 21:48 | NUR ---
Patient BIB by ALS from Parking Lot. C/O Drug ingestion x today. Per reported, Mother called 911, Patient possible ingested unknown substance . Hx Meth and Fentanyl User
--- NOTE | 2021-11-30 22:14 | NUR ---
Dr. Martinez examining patient.
[2021-11-30] MEDS ORDERED: HALOPERIDOL IM 5 MG/ML VIAL IM ONE (22:20)
[2021-11-30] MEDS ORDERED: LORazepam 2 MG/ML VIAL IM ONE (22:20)
[2021-11-30 23:04] LABS: BASOPHILS # (AUTO) 0.1 K/uL (0.00-0.22); BASOPHILS % (AUTO) 0.7 % (0.0-2.0); EOSINOPHILS % (AUTO) 0.3 % (0.0-4.0); HEMATOCRIT 40.3 % (36-52); HEMOGLOBIN 13.9 g/dL (12.0-18.0); LYMPHOCYTES # (AUTO) 1.2 K/uL (2.0-11.5); LYMPHOCYTES % (AUTO) 15.2 % (20.5-51.1); MEAN CORPUSCULAR HEMOGLOBIN 29 pg (27-31); MEAN CORPUSCULAR HGB CONC 34 g/dL (33-37); MEAN CORPUSCULAR VOLUME 83.3 fL (80-94); MONOCYTES # (AUTO) 0.6 K/uL (0.8-1.0); MONOCYTES % (AUTO) 7.5 % (1.7-9.3); NEUTROPHILS % (AUTO) 76.3 % (42.2-75.2); PLATELET COUNT (AUTO) 336 K/uL (140-450); RED BLOOD CELL COUNT(AUTO) 4.84 MIL/uL (4.20-6.10); RED CELL DISTRIBUTION WIDTH 13.4 % (11.6-13.7); WHITE BLOOD COUNT (AUTO) 7.9 K/uL (4.8-10.8)
--- NOTE | 2021-11-30 23:05 | NUR ---
Blood for labwork drawn from left arm per after school program director. Patient tolerated well.
--- NOTE | 2021-11-30 23:22 | NUR ---
In and out cath and urine sample collected and sent to lab.
[2021-11-30 23:23] LABS: ANION GAP 13.7 (8-16); ASPARTATE AMINOTRANSFERASE 30 U/L (15-37); CARBON DIOXIDE 28.6 mmol/L (21-32); CHLORIDE 99 mmol/L (98-107); CREATININE 0.7 mg/dL (0.6-1.3); GFR ARICAN-AMERICAN 163 mL/min (>90); GLUCOSE 114 mg/dL (74-106); POTASSIUM 3.3 mmol/L (3.5-5.1); SODIUM SERUM 138 mmol/L (136-145); TOTAL BILIRUBIN 1.8 mg/dL (0.0-1.0); UREA NITROGEN, BLOOD 13 mg/dL (7-18)
[2021-12-01 00:06] LABS: BARBITURATE, URINE NEGATIVE ng/ml (NEG <=200); BENZODIAZEPINE, URINE NEGATIVE ng/mL (NEG <=200); CANNABINOID, URINE POSITIVE ng/mL (NEG <=50); COCAINE, URINE NEGATIVE ng/mL (NEG <=300); OPIATE, URINE POSITIVE ng/mL (NEG <=2000); PHENCYCLIDINE SCREEN,URINE NEGATIVE ng/mL (NEG <=25)
--- NOTE | 2021-12-01 01:18 | NUR ---
Patient appears to be resting comfortably in bed. Vital Signs within normal limits. Respirations even and unlabored.
--- NOTE | 2021-12-01 03:37 | NUR ---
Spoke with patient 's family to update patient's status.
--- NOTE | 2021-12-01 04:32 | NUR ---
Patient is sleeping, vss.
--- NOTE | 2021-12-01 05:25 | NUR ---
Provided new clothes
--- NOTE | 2021-12-01 05:38 | NUR ---
called raghav, mother for turkey picker. no answer.
[2021-12-01 05:39] VITALS: BP 127/81
--- NOTE | 2021-12-01 05:39 | NUR ---
Patient refused to d/c- Patient started verbal and physical aggressive.
--- NOTE | 2021-12-01 05:43 | NUR ---
Patient transfer to [facility] via wheel chair.
== END 2021-12-01 05:43 | disposition home or self-care (01) ==
LOC: MED 21:40
DX: F11.129 Opioid abuse with intoxication, unspecified (principal); F15.129 Other stimulant abuse with intoxication, unspecified; R00.0 Tachycardia, unspecified; Z79.2 Long term (current) use of antibiotics; Z79.891 Long term (current) use of opiate analgesic; Z79.899 Other long term (current) drug therapy; Z91.040 Latex allergy status; Z88.8 Allergy status to other drugs, medicaments and biological substances
CPT/HCPCS: 36415; 80053; 80305; 85025; 96372; 99285; G0482; J1630; J2060